=== PATIENT | female | born 1990 | race Caucasian/White ===

== ENCOUNTER 2016-09-15 13:23 | Observation (INO) | payer MEDICAID ==
[2016-09-15] MEDS ORDERED: Sodium Chloride 0.9% 1000 ML 1,000 ML IV STA (13:52)
[2016-09-15] MEDS ORDERED: ROCEPHIN 1 Gm-D5w 50 ml Bag** 1 G/50 ML IVPB IV SCH (14:00)
[2016-09-15 15:25] VITALS: O2SAT 96
[2016-09-15] MEDS ORDERED: Zofran 4 MG/2 ML VIAL IV PRN (15:26)
[2016-09-15] MEDS ORDERED: Sodium Chloride 0.9% 1000 ML 1,000 ML IV SCH (16:15)
[2016-09-15 20:44] VITALS: BP 123/66; PULSE 100
== END 2016-09-15 20:20 | disposition home or self-care (01) ==
LOC: MED SURG 13:23 → OB 13:23
PROVIDERS: ADMIT Family Medicine; ATTEND Family Medicine
DX: Z34.83 Encounter for supervision of other normal pregnancy, third trimester (principal)
CPT/HCPCS: 87070; 87430; 87631; G0378; J0696; J2405

== ENCOUNTER 2016-09-21 21:07 | Observation (INO) | payer MEDICAID ==
[2016-09-21 21:30] VITALS: BP 123/71; PULSE 86
== END 2016-09-21 23:10 | disposition home or self-care (01) ==
LOC: MED SURG 21:07
PROVIDERS: ADMIT Family Medicine; ATTEND Family Medicine
DX: Z34.83 Encounter for supervision of other normal pregnancy, third trimester (principal)
CPT/HCPCS: 59025; 80307; G0378

== ENCOUNTER 2016-09-24 03:06 | Inpatient (IN) | payer MEDICAID ==
[2016-09-24] MEDS ORDERED: Lactated Ringers 1,000 ML IV ONE ×2 (04:18→05:30)
[2016-09-24] MEDS ORDERED: Ephedrine Sulfate 50 MG/ML IV PRN (05:30)
[2016-09-24] MEDS ORDERED: Lactated Ringers 1,000 ML IV SCH (05:30)
[2016-09-24] MEDS ORDERED: PITOCIN 30 UNITS/ LR 500 ML 500 ML IV SCH (05:30)
[2016-09-24] MEDS ORDERED: OB EPIDURAL NAROPIN/SUFENTANIL IN NACL EPIDURAL PRN (05:30)
[2016-09-24 05:42] LABS: Mean Cell Volume 90.5 fl (78-100); Mean Corpuscular Hemoglobin 29.6 pg (26-32); Mean Platelet Volume 11.5 fl (6-9.5); Platelet Count 272 K/mm3 (150-450); Red Blood Count 4.02 M/mm3 (4.1-5.4); Red Cell Distribution Width 14.2 % (11.5-14.0); White Blood Count 18.6 K/mm3 (4.0-10.5)
[2016-09-24] MEDS ORDERED: Ambien 10 MG PO PRN (06:56)
[2016-09-24] MEDS ORDERED: Anucort-HC SUPPOSITORY PR PRN (06:56)
[2016-09-24] MEDS ORDERED: Dulcolax 10 MG SUPP PR PRN (06:56)
[2016-09-24] MEDS ORDERED: Mylicon 80MG PO PRN (06:56)
[2016-09-24] MEDS ORDERED: TUCKS TP PRN (06:56)
[2016-09-24] MEDS ORDERED: Dermoplast Spray TP PRN (06:56)
[2016-09-24] MEDS ORDERED: CORTISONE 1% CREAM TP PRN (06:56)
[2016-09-24] MEDS ORDERED: LANSINOH 40 GM TOP PRN (06:56)
[2016-09-24] MEDS ORDERED: Restoril 15 MG PO PRN (06:56)
[2016-09-24 07:03] LABS: Total Cells Counted 100
[2016-09-24 07:04] LABS: ANISOCYTOSIS 1+; Platelet Estimate NORMAL (NORMAL); Poikilocytosis 1+; Polychromasia 1+
[2016-09-24] MEDS: MOTRIN 400 MG PO PRN ×3 (07:14→21:18)
[2016-09-24] MEDS ORDERED: NON-FORMULARY ITEM (Ondansetron Hcl [Zofran] 4 MG) PO PRN (07:48)
[2016-09-24] MEDS ORDERED: NON-FORMULARY ITEM (Prenatal Vits W-Ca,Fe,Fa(<1mg) [Prenatal] 1 EACH) PO SCH (10:00)
[2016-09-24] MEDS: Nicoderm CQ 21 MG TOP SCH (10:09)
[2016-09-24] MEDS: Colace 100 MG PO SCH ×2 (10:10→21:17)
[2016-09-24] MEDS: TYLENOL EXTRA STRENGTH 500 MG PO PRN (10:10)
[2016-09-24] MEDS: FERREX 150 PO SCH (10:11)
[2016-09-24] MEDS: Augmentin 875-125 Tablet PO SCH ×2 (10:11→21:17)
[2016-09-24] MEDS: THERAGRAN MULTIVITAMIN PO SCH (10:12)
[2016-09-24] MEDS: Tylenol #3 Tablet PO PRN (19:12)
[2016-09-24] MEDS: ZOFRAN ODT 4 MG PO PRN (20:34)
[2016-09-25] MEDS: TYLENOL EXTRA STRENGTH 500 MG PO PRN ×2 (00:21→08:20)
[2016-09-25] MEDS: MOTRIN 400 MG PO PRN ×2 (03:21→12:57)
[2016-09-25 05:46] LABS: BASOPHIL % 0.1 % (0.0-0.4); Eosinophil % 2.9 % (0.00-5.0); Granulocytes % 69.5 % (36.0-66.0); Lymphocytes % 19.4 % (24.0-44.0); Mean Cell Volume 92.1 fl (78-100); Mean Corpuscular Hemoglobin 29.5 pg (26-32); Mean Platelet Volume 11.4 fl (6-9.5); Monocytes % 8.1 % (0.0-12.0); Platelet Count 253 K/mm3 (150-450); Red Blood Count 3.69 M/mm3 (4.1-5.4); Red Cell Distribution Width 14.3 % (11.5-14.0); White Blood Count 13.9 K/mm3 (4.0-10.5)
[2016-09-25] MEDS: ZOFRAN ODT 4 MG PO PRN (08:32)
[2016-09-25] MEDS: THERAGRAN MULTIVITAMIN PO SCH (12:37)
[2016-09-25] MEDS: Colace 100 MG PO SCH ×2 (12:37→20:47)
[2016-09-25] MEDS: FERREX 150 PO SCH (12:37)
[2016-09-25] MEDS: Augmentin 875-125 Tablet PO SCH ×2 (12:37→20:47)
[2016-09-25] MEDS ORDERED: ZOFRAN ODT 4 MG PO PRN (20:04)
[2016-09-25] MEDS: Tylenol #3 Tablet PO PRN (20:47)
--- NOTE | 2016-09-26 08:04 | PCM.DS ---
Discharge Summary Date of Admission: 09/24/16 03:25 Admitting Physician: SERGEY RAMIREZ Consults: Consults on Case 09/24/16 05:30 Notify Anesthesia Provider PRN Primary Care Provider: SERGEY RAMIREZ Allergies Allergies latex Adverse Reaction (Verified 09/15/16 14:31) Hospital Summary - Hospital Course Hospital Course: Pt admitted in labor at 36+ weeks, had baby via after receiving a spinal. She had no vaginal lacerations. . She has recovered well, up without dizziness, gokul po. She asked for a nicotine patch here, smoked 1 PPD. Would like to d/c home on the patch. - Vitals & Intake/Output Vital Signs: Vital Signs Temperature 97.9 F 09/25/16 20:00 Pulse Rate 83 09/25/16 20:00 Respiratory Rate 16 09/26/16 02:00 Blood Pressure 124/70 09/25/16 20:00 O2 Sat by Pulse Oximetry Intake & Output: Intake & Output 09/23/16 09/24/16 09/25/16 09/26/16 11:59 11:59 11:59 11:59 Weight 84.368 kg - Lab Result Diagrams: 09/25/16 05:08 - Procedures and Test Procedures and Tests throughout Hospitalization: Therapy Orders & Screens 09/24/16 05:13 Smoking Cessation Education ONCE Comment: Diagnosis: OB CHECK Smoking Status: Current every day smoker How long have you smoked: 10 Have you smoked in the past 12 months: Yes Approximately how many cigarettes per day: 10 Do you dip or chew tobacco: No Discharge Exam General Appearance: no apparent distress Neurologic Exam: alert, oriented x 3, cooperative Skin Exam: normal color, warm, dry Respiratory Exam: normal breath sounds, lungs clear, No crackles/rales, No rhonchi, No wheezing Cardiovascular Exam: regular rate/rhythm, normal heart sounds, No murmur Extremity Exam: No pedal edema, No swelling Final Diagnosis/Problem List - Final Discharge Diagnosis/Problem (1) Vaginal delivery Current Visit: Yes Status: Acute Assessment & Plan: Doing great. Home today. (2) Anemia Current Visit: Yes Status: Acute Assessment & Plan: mild. home on iron once daily for a month. (3) Tobacco use disorder Current Visit: Yes Status: Chronic Assessment & Plan: Home on nicotine patch per pt request. - Discharge Disposition: Home, Self-Care Condition: Stable Prescriptions: [place] Polysaccharides Complex [Ferrex 150] 150 mg PO DAILY #30 capsule Nicotine 21 mg [Nicoderm CQ 21 MG] 21 mg TOP Q24H #30 patch Codeine Phosphate/APAP #3 [Tylenol #3 Tablet] 1 - 2 tab PO Q4H PRN PRN # 20 tablet PRN Reason: Severe Pain Continue Vits W-Ca,Fe,FA(<1Mg) [] 1 each PO DAILY Ondansetron HCl [Zofran] 4 mg PO DAILY PRN PRN PRN Reason: Nausea Amoxicillin/Potassium Clav [Augmentin 875-125 Tablet] 875 mg PO BID Follow up with: SERGEY RAMIREZ [Primary Care Provider] - 1 Week Forms: Work/School Release Form
[2016-09-26] MEDS: Tylenol #3 Tablet PO PRN (09:09)
[2016-09-26] MEDS: FERREX 150 PO SCH (09:09)
[2016-09-26] MEDS: Colace 100 MG PO SCH (09:09)
[2016-09-26] MEDS: THERAGRAN MULTIVITAMIN PO SCH (09:10)
[2016-09-26] MEDS: Augmentin 875-125 Tablet PO SCH (09:10)
[2016-09-26] MEDS: Nicoderm CQ 21 MG TOP SCH (09:11)
[2016-09-26 09:23] VITALS: BP 109/57; PULSE 76
== END 2016-09-26 12:40 | disposition home or self-care (01) | DRG 775 ==
LOC: OB 03:06 → OBSVTOIN 03:25 → OB 03:25
PROVIDERS: ADMIT Family Medicine; ATTEND Family Medicine
PROC: 10E0XZZ Delivery of Products of Conception, External Approach (ICD-10-PCS; principal; 2016-09-24)
DX: O80 Encounter for full-term uncomplicated delivery (principal); Z3A.36 36 weeks gestation of pregnancy; Z37.0 Single live birth; D64.9 Anemia, unspecified; Z72.0 Tobacco use
CPT/HCPCS: 36415; 59025; 80307; 85025; 94799; G0378; J2590; J2795; Q0162; A9270-GY

== ENCOUNTER 2017-12-11 15:33 | Observation (INO) | payer MEDICAID ==
[2017-12-11] MEDS ORDERED: Lactated Ringers 1,000 ML IV ONE ×2 (17:26→22:00)
[2017-12-11] MEDS: Lactated Ringers 1,000 ML IV SCH ×2 (19:15→22:01)
[2017-12-11] MEDS ORDERED: Celestone Soluspan 6MG/ML IM ONE (21:36)
--- NOTE | 2017-12-11 21:41 | PCM.SSS ---
History of Present Illness - Chief Complaint Chief Complaint: OB Check History of Present Illness: is a 27 year old female at 32 weeks EGA who arrived c/o decreased movement. She felt like her baby flipped last night and has not felt any movement since then. history is complicated by anti-M antibody and has seen Dr Williamson in [place]. She has had some decelerations since arrival to labor and delivery. She has not had any contractions, no bleeding or leakage of fluid. - Review of Systems Constitutional: No Fever, No Chills Respiratory: No Cough, No Short Of Breath Cardiac: No Chest Pain, No Edema, No Syncope Abdominal/Gastrointestinal: Other (decreased movement as per hpi), No Abdominal Pain, No Nausea, No Vomiting, No Diarrhea Genitourinary Symptoms: No Dysuria Medications & Allergies Home Medications: Home Medication List Vits W-Ca,Fe,FA(<1Mg) [] 1 each PO DAILY 09/21/16 [History Confirmed 12/11/17] Allergies/Adverse Reactions: Allergies Allergy/AdvReac Type Severity Reaction Status Date / Time latex AdvReac Verified 12/11/17 16:53 - Past Medical History Past Medical History: Yes Neurological History: No Pertinent History ENT History: No Pertinent History Cardiac History: No Pertinent History Respiratory History: Pneumonia Endocrine Medical History: No Pertinent History Musculoskelatal History: No Pertinent History GI Medical History: No Pertinent History History: No Pertinent History Pyscho-Social History: No Pertinent History Reproductive Disorders: No Pertinent History - Female History Expected Date of Delivery: 02/09/18 - Past Surgical History Past Surgical History: No Neuro Surgical History: No Pertinent History Cardiac History: No Pertinent History Respiratory Surgery: No Pertinent History GI Surgical History: No Pertinent History Genitourinary Surgical Hx: No Pertinent History Musculskeletal Surgical Hx: No Pertinent History Female Surgical History: No Pertinent History - Social History Smoking Status: Current every day smoker How long have you smoked: 10 Exposure to second hand smoke: Yes Alcohol: None Drug Use: none - Physical Exam Vital Signs: Vital Signs - 24 hr Temp Pulse Resp BP BP 12/11/17 16:02 98.2 F 90 18 128/62 12/11/17 16:00 98.2 F 909 H 18 128/62 General Appearance: no apparent distress, alert Eye Exam: PERRL/EOMI, eyes nml inspection Ears, Nose, Throat Exam: normal ENT inspection, TMs normal, pharynx normal, moist mucous membranes Respiratory Exam: normal breath sounds, lungs clear, No respiratory distress Cardiovascular Exam: regular rate/rhythm, normal heart sounds, normal peripheral pulses Gastrointestinal/Abdomen Exam: soft, other (gravid), No tenderness, No distention Results - Radiology Impressions Radiology Exams & Impressions: Radiology Procedures Category Date Time Status OB >14 WKS 1st GESTATION [US] Urgent Exams 12/11/17 16:31 Taken Assessment/Plan (1) Non-reassuring heart rate or rhythm affecting management of fetus Current Visit: Yes Status: Acute Assessment & Plan: I spoke with Dr Ivory Epstein at [facility] who agrees to accept patient in transfer, patient has not had any declerations for the last 1+ hour, no significant risk of delivery in transit. needs to be evaluated by MFM and will give celestone 12mg IM per her request. Code(s): OQT1935 - (2) 32 weeks gestation of Current Visit: Yes Status: Acute Code(s): Z3A.32 - 32 WEEKS GESTATION OF (3) Anti-M isoimmunization affecting , antepartum Current Visit: Yes Status: Acute Assessment & Plan: no titers or consult available in medical records but antibody ID present in outpatient OB chart. Code(s): O36.1990 - MATERNAL CARE FOR OTH ISOIMMUNIZATION, [facility], [facility] Hospital Summary - Vitals & Intake/Output Vital Signs: Vital Signs Temperature 98.2 F 12/11/17 16:02 Pulse Rate 90 12/11/17 16:02 Respiratory Rate 12/11/17 16:02 Blood Pressure 128/62 12/11/17 16:02 O2 Sat by Pulse Oximetry Intake & Output: Intake & Output 12/09/17 12/10/17 12/11/17 12/12/17 11:59 11:59 11:59 11:59 Weight 75 kg - Radiology Exams Ordered Rad Exams-Entire Visit: Radiology Procedures Category Date Time Status OB >14 WKS 1st GESTATION [US] Urgent Exams 12/11/17 16:31 Taken - Discharge Disposition: XFER OTHER Condition: Stable Prescriptions: No Action Vits W-Ca,Fe,FA(<1Mg) [] 1 each PO DAILY
[2017-12-11] MEDS ORDERED: Celestone Soluspan 6MG/ML ONE (21:45)
--- NOTE | 2017-12-11 23:08 | XRAY ---
Exam: OB ultrasound greater than 14 weeks from 12/11/2017 Comparison: OB ultrasound greater than 14 weeks from 09/09/2017 and 08/26/2017. Indication: well-being. Findings: A single live intrauterine fetus is seen in the oblique lie and cephalic presentation. body movement and cardiac activity were identified. The heart rate measured 141 bpm. The placenta is anterior. There is no evidence of placenta previa. The amniotic fluid index measures 13.5 cm which is within normal limits for this stage of . Measurements of the biparietal diameter, head circumference, abdominal circumference, and femur length suggest an average composite gestational age of 29 weeks 3 days plus or -2 weeks 0 days with an estimated due date of 02/23/2018. This is 13 days behind that anticipated by the first OB ultrasound of 08/26/2017. Estimated due date by dates is 02/09/2018, whereas today's exam suggests a due date of 02/23/2018. This would suggest that the fetus may be somewhat small for gestational age. Estimated weight is 1417 g plus or minus 212 g (3 lbs. 2 oz.+ or -7 ounces). The estimated weight is in the 3.6 percentile. size ratios are all within normal limits except for a slightly elevated femur length head circumference ratio of 21.78 (normal 19.43-21.06). In addition, color flow images reveal a portion of the umbilical cord completely surrounding the neck consistent with a nuchal cord. This is seen with color flow imaging. Up to half of nuchal cords will resolve before delivery. However, follow-up is indicated in this regard. Survey of the ventricles, lips/nose, four-chamber heart, fluid-filled stomach, diaphragm, kidneys, urinary bladder, and three-vessel umbilical cord appear unremarkable. The umbilical cord insertion site was unable to be seen. The spine was not evaluated on the current study. Both the umbilical cord insertion site and spine appeared unremarkable on the OB ultrasound from 09/09/2017. Impression: 1. Single live intrauterine fetus in the oblique lie and cephalic presentation with a heart rate of 141 bpm. 2. A portion of the umbilical cord appears to completely surround the neck suggesting a nuchal cord. Follow-up is recommended. 3. size measurements suggest a gestational age of 29 weeks 3 days which is 13 days behind that anticipated by the prior ultrasound exam of 09/09/2017. This is still within the normal range of variability of plus or minus 2 weeks at this stage of , but the fetus may be somewhat small for gestational age. Furthermore, estimated weight of 3 [address] fetus in the 3.6 percentile. Follow-up is warranted. 4. The placenta appears anterior. No placenta previa is seen. 5. Normal amniotic fluid index of 13.5 cm.
[2017-12-12 04:38] VITALS: PULSE 78
[2017-12-12 05:30] VITALS: BP 126/80; O2SAT 97
== END 2017-12-11 22:45 ==
LOC: OB 15:33
PROVIDERS: ADMIT Family Medicine; ATTEND Family Medicine
DX: Z34.83 Encounter for supervision of other normal pregnancy, third trimester (principal)
CPT/HCPCS: 76805; G0378; J0702

== ENCOUNTER 2018-11-09 19:15 | Observation (INO) | payer OTHER ==
[2018-11-09 20:31] LABS: Appearance CLOUDY (CLEAR); Bilirubin NEGATIVE (NEGATIVE); Blood NEGATIVE Ery/ul (0-5); Epithelial Cells MANY /HPF (FEW); Glucose NEGATIVE (NEGATIVE); Hyaline Casts 0-2 /LPF (0-2); Ketones NEGATIVE (NEGATIVE); Leukocyte Esterase NEGATIVE (NEGATIVE); Mucus SLIGHT /HPF (NEGATIVE); Nitrite NEGATIVE (NEGATIVE); Protein,Urine Dip 30 (Negative); Urobilinogen 4 mg/dL (0-1)
[2018-11-09] MEDS ORDERED: Lactated Ringers 1,000 ML IV ONE (20:45)
[2018-11-09] MEDS ORDERED: ROCEPHIN 1 Gm-D5w 50 ml Bag** 1 G/50 ML IVPB IV ONE (21:04)
[2018-11-09 21:25] LABS: Amphetamine,Urine NEGATIVE (NEGATIVE)
[2018-11-09 21:29] LABS: Barbiturate,Urine NEGATIVE (NEGATIVE); Benzodiazepine,Urine NEGATIVE (NEGATIVE); Cocaine,Urine NEGATIVE (NEGATIVE); Methadone,Urine NEGATIVE (NEGATIVE); Opiate,Urine NEGATIVE (NEGATIVE); PCP,Urine NEGATIVE (NEGATIVE); THC,Urine POSITIVE (NEGATIVE)
[2018-11-09] MEDS ORDERED: Lactated Ringers 1,000 ML IV SCH ×2 (21:30)
[2018-11-09] MEDS: Lactated Ringers 1,000 ML IV SCH (21:51)
[2018-11-09 21:54] LABS: BASOPHIL % 0.1 % (0.0-0.4); Basophil (Absolute #) 0.01 (0-0.4); Eosinophil % 1.3 % (0.00-5.0); Eosinophil (Absolute #) 0.22 (0-0.5); Granulocyte Absolute (ANC) 13.35 (1.4-6.9); Granulocytes % 79.6 % (36.0-66.0); Hematocrit 34.4 % (35-47); Hemoglobin 11.6 gm/dl (12.0-16.0); Lymphocyte (Absolute #) 1.65 (1.0-4.6); Lymphocytes % 9.9 % (24.0-44.0); Mean Cell Volume 90.8 fl (78-100); Mean Corpuscular Hemoglobin 30.6 pg (26-32); Mean Corpuscular Hgb Concent. 33.7 g/dl (32-36); Mean Platelet Volume 11.8 fl (6-9.5); Monocyte (Absolute #) 1.52 (0.0-1.3); Monocytes % 9.1 % (0.0-12.0); Platelet Count 247 K/mm3 (150-450); Red Blood Count 3.79 M/mm3 (4.1-5.4); Red Cell Distribution Width 13.4 % (11.5-14.0); White Blood Count 16.8 K/mm3 (4.0-10.5)
[2018-11-09 22:10] LABS: ALBUMIN 3.4 g/dL (3.5-5.0); ALKALINE PHOSPHATASE 150 U/L (38-126); ANION GAP 12.3 MEQ/L (5-15); BLOOD UREA NITROGEN 4 mg/dL (7-17); CHLORIDE 106 mmol/L (98-107); Calcium 8.8 mg/dL (8.4-10.2); Carbon Dioxide 22 mmol/L (22-30); Creatinine 1 0.34 mg/dL (0.52-1.04); Glucose 81 mg/dL (74-106); Potassium 3.6 mmol/L (3.5-5.1); SGOT/AST 15 U/L (14-36); SGPT/ALT 12 U/L (0-35); SODIUM 137 mmol/L (137-145); Total Protein 6.9 g/dL (6.3-8.2)
[2018-11-10 01:20] LABS: Slide Review 1 YES
[2018-11-10] MEDS: Lactated Ringers 1,000 ML IV SCH ×2 (06:05→15:37)
[2018-11-10] MEDS ORDERED: PROVENTIL 2.5 MG/3 ML NEB IH ONE ×3 (10:46→19:14)
--- NOTE | 2018-11-10 10:56 | XRAY ---
Indication: Cough. Comparison: None PA/lateral chest demonstrates normal heart and lungs. Bony thorax intact with minimal scoliosis and mild pectus excavatum deformity. Impression: Nonacute chest with chronic features.
[2018-11-10] MEDS: PROVENTIL 2.5 MG/3 ML NEB IH SCH ×3 (11:23→19:15)
--- NOTE | 2018-11-10 12:04 | XRAY ---
Indication: well-being. Minimal care. 2-dimensional OB ultrasound performed. Comparison: None for this . There is a single viable intrauterine currently in cephalic presentation. Normal four-chamber heart with heart rate 135 BPM. Normal three-vessel cord and cord insertion. Visualized head, spine, stomach, and bladder appear unremarkable. Anterior placenta without abruption/previa. Cervical length measures 4.1 cm. BPD measures 8.12 cm corresponding to 32 weeks 4 days. HC measures 29.54 cm corresponding to 32 weeks 5 days. AC measures 29.64 cm corresponding to 33 weeks 4 days. FL measures 6.20 cm corresponding to 32 weeks 1 day. MARGA is 17.8 cm. Impression: Single viable intrauterine with mean gestational age 32 weeks 5 days. Expected date confinement is December 31, 2018.
[2018-11-10 15:19] LABS: Antibody Screen POSITIVE (NEGATIVE)
[2018-11-10] MEDS ORDERED: ROCEPHIN 1 Gm-D5w 50 ml Bag** 1 G/50 ML IVPB IV ONE (18:19)
[2018-11-10] MEDS ORDERED: NORCO 5/325 MG PO ONE (18:30)
[2018-11-10 20:54] VITALS: BP 118/76; PULSE 94; O2SAT 96
[2018-11-10] MEDS ORDERED: ROCEPHIN 1 Gm-D5w 50 ml Bag** 1 G/50 ML IVPB IV SCH (22:00)
[2018-11-11 14:16] LABS: RPR Screen Non Reactive (Non Reactive)
[2018-11-11 14:52] LABS: AB ID Interp Anti-M
[2018-11-11 14:53] LABS: Immune Status: Immune
[2018-11-11 15:02] LABS: Blood Bank Reference Report See Result Note:
== END 2018-11-10 21:00 | disposition home or self-care (01) ==
LOC: MED SURG 19:15 → OB 19:55
PROVIDERS: ADMIT Family Medicine; ATTEND Family Medicine
DX: Z34.83 Encounter for supervision of other normal pregnancy, third trimester (principal)
CPT/HCPCS: 0064U; 0065U; 36415; 71046; 76805; 80053; 80307; 81001; 85025; 86593; 86701; 86702; 86762; 86850; 86870; 86900; 86901; 87340; 87389; 94150; 94640; 94760; 86592; J0696; J7609; A9270-GY

== ENCOUNTER 2018-11-22 19:47 | Observation (INO) | payer OTHER ==
[2018-11-22] MEDS ORDERED: Zofran 4 MG/2 ML VIAL IV ONE (20:50)
[2018-11-22] MEDS ORDERED: Lactated Ringers 1,000 ML IV SCH (21:00)
[2018-11-22 21:23] LABS: Hematocrit 39.9 % (35-47); Hemoglobin 13.3 gm/dl (12.0-16.0); Mean Cell Volume 90.1 fl (78-100); Mean Corpuscular Hgb Concent. 33.3 g/dl (32-36); Mean Platelet Volume 11.3 fl (6-9.5); Platelet Count 308 K/mm3 (150-450); Red Blood Count 4.43 M/mm3 (4.1-5.4); Red Cell Distribution Width 13.6 % (11.5-14.0)
[2018-11-22 21:34] LABS: ALBUMIN 3.7 g/dL (3.5-5.0); ALKALINE PHOSPHATASE 188 U/L (38-126); ANION GAP 11.8 MEQ/L (5-15); BLOOD UREA NITROGEN 6 mg/dL (7-17); CHLORIDE 105 mmol/L (98-107); Calcium 9.1 mg/dL (8.4-10.2); Carbon Dioxide 25 mmol/L (22-30); Creatinine 1 0.39 mg/dL (0.52-1.04); Glucose 112 mg/dL (74-106); Potassium 4.2 mmol/L (3.5-5.1); SGOT/AST 16 U/L (14-36); SGPT/ALT 14 U/L (0-35); SODIUM 138 mmol/L (137-145); Total Protein 7.2 g/dL (6.3-8.2)
[2018-11-22 21:51] LABS: White Blood Count 30.5 K/mm3 (4.0-10.5)
[2018-11-22] MEDS ORDERED: ROCEPHIN 1 Gm-D5w 50 ml Bag** 1 G/50 ML IVPB IV SCH (22:33)
[2018-11-22] MEDS ORDERED: BRETHINE 1 MG/ML SQ ONE (22:33)
[2018-11-22] MEDS: Lactated Ringers 1,000 ML IV SCH (22:47)
[2018-11-22 23:19] LABS: Appearance SLIGHTLY CLOUDY (CLEAR); Bilirubin NEGATIVE (NEGATIVE); Blood NEGATIVE Ery/ul (0-5); Epithelial Cells RARE /HPF (FEW); Glucose NEGATIVE (NEGATIVE); Ketones TRACE (NEGATIVE); Leukocyte Esterase TRACE (NEGATIVE); Mucus SLIGHT /HPF (NEGATIVE); Nitrite NEGATIVE (NEGATIVE); Protein,Urine Dip NEGATIVE (Negative); Specific Gravity 1.017 (1.005-1.025); Urobilinogen NEGATIVE mg/dL (0-1)
[2018-11-22 23:31] LABS: Amphetamine,Urine NEGATIVE (NEGATIVE); Barbiturate,Urine NEGATIVE (NEGATIVE); Benzodiazepine,Urine NEGATIVE (NEGATIVE); Cocaine,Urine NEGATIVE (NEGATIVE); Methadone,Urine NEGATIVE (NEGATIVE); Opiate,Urine NEGATIVE (NEGATIVE); PCP,Urine NEGATIVE (NEGATIVE); THC,Urine NEGATIVE (NEGATIVE)
[2018-11-22 23:49] LABS: ANISOCYTOSIS 2+; BAND 12 % (0.0-2.0); Lymphocytes 5 % (24-44); Monocyte 7 % (0.0-12.0); Neutrophils 76 % (36.0-66.0); Platelet Estimate NORMAL (NORMAL); Poikilocytosis 1+; Total Cells Counted 100
[2018-11-23] MEDS ORDERED: BRETHINE 1 MG/ML SQ ONE (00:11)
[2018-11-23] MEDS: Lactated Ringers 1,000 ML IV SCH ×2 (01:00→07:27)
[2018-11-23 05:56] VITALS: O2SAT 96
[2018-11-23] MEDS ORDERED: Lactated Ringers 1,000 ML IV ONE (07:23)
--- NOTE | 2018-11-23 09:20 | PCM.HP ---
History of Present Illness - Chief Complaint Chief Complaint: vomiting History of Present Illness: is a 28 year old female who presented to the labor and delivery room with vomiting and back pain, she was found to have contractions and ketonuria consistent with dehydration, contractions resolved with terbutaline x 2 and IV hydration. she was seen on 11/[address] Li and given rx for augmentin, took 1 dose at home and made her sick so she stopped. She had some recurrence of cough and congestion so took 1 dose yesterday and developed profuse vomiting since then. She has not been seen in the office, was apparently seen x [address] Menard. ob ultrasound on 11/10/18 at [facility] showed edc 12/31/18, she claims she was told her due date is 01/17/19, which makes her 32 1/7 wks EGA by her reported due date and 34 4/7 wks EGA based on her ultrasound. - Review of Systems Constitutional: No Fever, No Chills Respiratory: Cough Cardiac: No Chest Pain, No Edema, No Syncope Abdominal/Gastrointestinal: No Abdominal Pain, No Nausea, No Vomiting, No Diarrhea Genitourinary Symptoms: No Dysuria Skin: No Rash All Other Systems: Reviewed and Negative Medications & Allergies Home Medications: Home Medication List Vits W-Ca,Fe,FA(<1Mg) [] 1 each PO DAILY 09/21/16 [History Confirmed 11/23/18] Acetaminophen 500 mg [Tylenol Extra Strength 500 mg] 1 - 2 tab PO BID PRN 11/09/18 [History Confirmed 11/23/18] Amox Tr/Potass Clav. 875 mg [Augmentin 875-125 Tablet] 1 tab PO BID 8 Days #16 tablet 11/10/18 [Rx Confirmed 11/23/18] Allergies/Adverse Reactions: Allergies Allergy/AdvReac Type Severity Reaction Status Date / Time latex AdvReac Verified 12/11/17 16:53 - Past Medical History Past Medical History: Yes Neurological History: No Pertinent History ENT History: No Pertinent History Cardiac History: No Pertinent History Respiratory History: Pneumonia Endocrine Medical History: No Pertinent History Musculoskelatal History: No Pertinent History GI Medical History: No Pertinent History History: No Pertinent History Pyscho-Social History: No Pertinent History Reproductive Disorders: No Pertinent History - Past Surgical History Past Surgical History: No Neuro Surgical History: No Pertinent History Cardiac History: No Pertinent History Respiratory Surgery: No Pertinent History GI Surgical History: No Pertinent History Genitourinary Surgical Hx: No Pertinent History Musculskeletal Surgical Hx: No Pertinent History Female Surgical History: Section - Social History Smoking Status: Current every day smoker How long have you smoked: 14yrs Exposure to second hand smoke: Yes Alcohol: None Drug Use: none - Physical Exam Vital Signs: Vital Signs - 24 hr Temp Pulse Resp BP BP Pulse Ox 11/23/18 04:00 97.9 F 91 H 20 123/70 96 11/23/18 00:00 98.1 F 120 H 20 122/61 11/22/18 21:32 98.1 F 85 20 115/80 General Appearance: no apparent distress Neurologic Exam: alert, oriented x 3 Respiratory Exam: normal breath sounds, lungs clear, wheezing (occasional wheeze in bases) Cardiovascular Exam: regular rate/rhythm, normal heart sounds, normal peripheral pulses Gastrointestinal/Abdomen Exam: soft (gravid), normal bowel sounds, No tenderness , No mass Extremity Exam: normal inspection, normal range of motion, pelvis stable Skin Exam: normal color, warm, dry, No rash Results - Labs Lab/Micro Results: Lab Results-Last 24 Hours 11/22/18 11/22/18 11/22/18 Range/Units 21:27 21:27 23:15 WBC 30.5 H* (4.0-10.5) K/mm3 RBC 4.43 (4.1-5.4) M/mm3 Hgb 13.3 (12.0-16.0) gm/dl Hct 39.9 (35-47) % MCV 90.1 (78-100) fl MCH 30.0 (26-32) pg MCHC 33.3 (32-36) g/dl RDW 13.6 (11.5-14.0) % Plt Count 308 (150-450) K/mm3 MPV 11.3 H (6-9.5) fl Segmented Neutrophils 76 H (36.0-66.0) % Band Neutrophils 12 H (0.0-2.0) % Lymphocytes (Manual) 5 L (24-44) % Monocytes (Manual) 7 (0.0-12.0) % Platelet Estimate NORMAL (NORMAL) RBC Morphology ABNORMAL Poikilocytosis 1+ Anisocytosis 2+ Smear Path Review Pending Sodium 138 (137-145) mmol/L Potassium 4.2 (3.5-5.1) mmol/L Chloride 105 (98-107) mmol/L Carbon Dioxide 25 (22-30) mmol/L Anion Gap 11.8 (5-15) MEQ/L BUN 6 L (7-17) mg/dL Creatinine 0.39 L (0.52-1.04) mg/dL Estimated GFR > 60.0 ML/MIN Glucose 112 H (74-106) mg/dL Calcium 9.1 (8.4-10.2) mg/dL Total Bilirubin 0.30 (0.2-1.3) mg/dL AST 16 (14-36) U/L ALT 14 (0-35) U/L Alkaline Phosphatase 188 H (38-126) U/L Serum Total Protein 7.2 (6.3-8.2) g/dL Albumin 3.7 (3.5-5.0) g/dL Urine Color YELLOW (YELLOW) Urine Appearance SLIGHTLY CLOUDY (CLEAR) Urine pH 7.0 (5-6) Ur Specific [place] 1.017 (1.005-1.025) Urine Protein NEGATIVE (Negative) Urine Ketones TRACE (NEGATIVE) Urine Blood NEGATIVE (0-5) Jose/ul Urine Nitrite NEGATIVE (NEGATIVE) Urine Bilirubin NEGATIVE (NEGATIVE) Urine Urobilinogen NEGATIVE (0-1) mg/dL Ur Leukocyte Esterase TRACE (NEGATIVE) Urine WBC (Auto) 3-5 (0-5) /HPF Urine RBC (Auto) NONE (0-2) /HPF U Epithel Cells (Auto) RARE (FEW) /HPF Urine Bacteria (Auto) NONE (NEGATIVE) /HPF Urine Mucus (Auto) SLIGHT (NEGATIVE) /HPF Urine Culture Reflexed NO (NO) Urine Glucose NEGATIVE (NEGATIVE) mg/dL Urine Opiates Level (NEGATIVE) Ur Methadone (NEGATIVE) Urine Barbiturates (NEGATIVE) Ur Phencyclidine (PCP) (NEGATIVE) Urine Amphetamine (NEGATIVE) U Benzodiazepine Level (NEGATIVE) Urine Cocaine (NEGATIVE) Urine Marijuana (THC) (NEGATIVE) 11/22/18 Range/Units 23:15 WBC (4.0-10.5) K/mm3 RBC (4.1-5.4) M/mm3 Hgb (12.0-16.0) gm/dl Hct (35-47) % MCV (78-100) fl MCH (26-32) pg MCHC (32-36) g/dl RDW (11.5-14.0) % Plt Count (150-450) K/mm3 MPV (6-9.5) fl Segmented Neutrophils (36.0-66.0) % Band Neutrophils (0.0-2.0) % Lymphocytes (Manual) (24-44) % Monocytes (Manual) (0.0-12.0) % Platelet Estimate (NORMAL) RBC Morphology Poikilocytosis Anisocytosis Smear Path Review Sodium (137-145) mmol/L Potassium (3.5-5.1) mmol/L Chloride (98-107) mmol/L Carbon Dioxide (22-30) mmol/L Anion Gap (5-15) MEQ/L BUN (7-17) mg/dL Creatinine (0.52-1.04) mg/dL Estimated GFR ML/MIN Glucose (74-106) mg/dL Calcium (8.4-10.2) mg/dL Total Bilirubin (0.2-1.3) mg/dL AST (14-36) U/L ALT (0-35) U/L Alkaline Phosphatase (38-126) U/L Serum Total Protein (6.3-8.2) g/dL Albumin (3.5-5.0) g/dL Urine Color (YELLOW) Urine Appearance (CLEAR) Urine pH (5-6) Ur Specific [place] (1.005-1.025) Urine Protein (Negative) Urine Ketones (NEGATIVE) Urine Blood (0-5) Jose/ul Urine Nitrite (NEGATIVE) Urine Bilirubin (NEGATIVE) Urine Urobilinogen (0-1) mg/dL Ur Leukocyte Esterase (NEGATIVE) Urine WBC (Auto) (0-5) /HPF Urine RBC (Auto) (0-2) /HPF U Epithel Cells (Auto) (FEW) /HPF Urine Bacteria (Auto) (NEGATIVE) /HPF Urine Mucus (Auto) (NEGATIVE) /HPF Urine Culture Reflexed (NO) Urine Glucose (NEGATIVE) mg/dL Urine Opiates Level NEGATIVE (NEGATIVE) Ur Methadone NEGATIVE (NEGATIVE) Urine Barbiturates NEGATIVE (NEGATIVE) Ur Phencyclidine (PCP) NEGATIVE (NEGATIVE) Urine Amphetamine NEGATIVE (NEGATIVE) U Benzodiazepine Level NEGATIVE (NEGATIVE) Urine Cocaine NEGATIVE (NEGATIVE) Urine Marijuana (THC) NEGATIVE (NEGATIVE) Assessment/Plan (1) Nausea and vomiting Current Visit: Yes Status: Acute Assessment & Plan: resolved with fluids and treatment Code(s): R11.2 - NAUSEA WITH VOMITING, UNSPECIFIED (2) contractions Current Visit: Yes Status: Acute Assessment & Plan: resolved with terb x 2 Code(s): O47.9 - FALSE LABOR, UNSPECIFIED (3) Leukocytosis Current Visit: Yes Status: Acute Assessment & Plan: likely secondary to vomiting, will repeat cbc this am Code(s): D72.829 - ELEVATED WHITE BLOOD CELL COUNT, UNSPECIFIED
[2018-11-23 09:41] LABS: BASOPHIL % 0.1 % (0.0-0.4); Basophil (Absolute #) 0.02 (0-0.4); Eosinophil % 0.7 % (0.00-5.0); Eosinophil (Absolute #) 0.13 (0-0.5); Granulocyte Absolute (ANC) 14.35 (1.4-6.9); Granulocytes % 82.7 % (36.0-66.0); Hematocrit 32.9 % (35-47); Hemoglobin 10.8 gm/dl (12.0-16.0); Lymphocyte (Absolute #) 1.94 (1.0-4.6); Lymphocytes % 11.2 % (24.0-44.0); Mean Cell Volume 91.4 fl (78-100); Mean Corpuscular Hgb Concent. 32.8 g/dl (32-36); Mean Platelet Volume 11.4 fl (6-9.5); Monocytes % 5.3 % (0.0-12.0); Platelet Count 273 K/mm3 (150-450); Red Cell Distribution Width 13.4 % (11.5-14.0); White Blood Count 17.4 K/mm3 (4.0-10.5)
[2018-11-23 10:00] VITALS: BP 113/70; PULSE 88
[2018-11-23] MEDS ORDERED: ROCEPHIN 1 Gm-D5w 50 ml Bag** 1 G/50 ML IVPB IV SCH (22:00)
== END 2018-11-23 11:15 | disposition home or self-care (01) ==
LOC: OB 19:47
PROVIDERS: ADMIT Family Medicine; ATTEND Family Medicine
DX: O21.9 Vomiting of pregnancy, unspecified (principal); O60.03 Preterm labor without delivery, third trimester; Z3A.34 34 weeks gestation of pregnancy; D72.829 Elevated white blood cell count, unspecified
CPT/HCPCS: 36415; 80053; 80307; 81001; 85025; 90384; G0378; J0696; J2405

== ENCOUNTER 2018-12-17 07:00 | Inpatient (IN) | payer MEDICAID | END 2018-12-18 13:50 | disposition home or self-care (01) | LOC: OB 07:00 ==

== ENCOUNTER 2019-01-23 14:14 | Emergency (ER) | payer MEDICAID ==
--- NOTE | 2019-01-23 14:21 | ERPHSYRPT ---
- History of Present Illness Time Seen by Provider: 01/23/19 14:21 Source: patient, family Exam Limitations: no limitations Physician History: 28 y/o white female presents with right breast pain, redness, and drainage. pt states she was bite by something 4 to 5 days ago. sx worsening. pt has gi upset with augmentin but no true allergy. Timing/Duration: day(s) ( 4 to 5 ) Quality: burning, painful Severity: moderate Location: other (right breast) Possible Causes: insect bite Associated Symptoms: blisters, change in skin texture Allergies/Adverse Reactions: latex Adverse Reaction (Verified 01/23/19 15:26) - Review of Systems Constitutional: No Symptoms Eyes: No Symptoms Ears, Nose, & Throat: No Symptoms Respiratory: No Symptoms Cardiac: No Symptoms Abdominal/Gastrointestinal: No Symptoms Genitourinary Symptoms: No Symptoms Musculoskeletal: No Symptoms Skin: Other (abscess eschar redness right breast) Neurological: No Symptoms Psychological: No Symptoms Endocrine: No Symptoms Hematologic/Lymphatic: No Symptoms Immunological/Allergic: No Symptoms All Other Systems: Reviewed and Negative - Past Medical History Pertinent Past Medical History: Yes Neurological History: No Pertinent History ENT History: No Pertinent History Cardiac History: No Pertinent History Respiratory History: Asthma, Pneumonia Endocrine Medical History: No Pertinent History Musculoskeletal History: No Pertinent History GI Medical History: No Pertinent History History: No Pertinent History Psycho-Social History: No Pertinent History Female Reproductive Disorders: No Pertinent History Other Medical History: IN 2018 - Past Surgical History Past Surgical History: No Neuro Surgical History: No Pertinent History Cardiac: No Pertinent History Respiratory: No Pertinent History Gastrointestinal: No Pertinent History Genitourinary: No Pertinent History Musculoskeletal: No Pertinent History Female Surgical History: Section - Social History Smoking Status: Current every day smoker How long have you smoked: 14yrs Exposure to second hand smoke: Yes Drug Use: marijuana - Nursing Vital Signs Nursing Vital Signs: Initial Vital Signs Temperature 98.0 F 01/23/19 14:19 Pulse Rate 86 01/23/19 14:19 Respiratory Rate 18 01/23/19 14:19 Blood Pressure 108/75 01/23/19 14:19 Pain Scale Pain Intensity 9 - Physical Exam General Appearance: mild distress Eye Exam: PERRL/EOMI, eyes nml inspection Ears, Nose, Throat Exam: normal ENT inspection, moist mucous membranes Neck Exam: normal inspection, non-tender, supple, full range of motion Respiratory Exam: normal breath sounds, lungs clear, airway intact, No chest tenderness, No respiratory distress Gastrointestinal/Abdomen Exam: No tenderness Pelvic Exam: not done Rectal Exam: not done Back Exam: normal inspection, normal range of motion, No CVA tenderness, No vertebral tenderness Extremity Exam: normal inspection, normal range of motion, pelvis stable Neurologic Exam: alert, oriented x 3, cooperative, stab setter and driller II-XII nml as tested Skin Exam: normal color, other (cellulitis; abscess approx 2cm x 2cm medial to right areola. eschar present. ) Lymphatic Exam: No adenopathy SpO2 Interpretation: normal O2 Delivery: Room Air Procedures - Incision and Drainage Anesthesia: 1% Lidocaine cc's of anesthesia: 4 Blade Size: 15 I & D Procedure: betadine prep Results: moderate amount pus Ordered Tests: Active Orders 24 hr Category Date Time Status IV Insertion STAT Care 01/23/19 15:11 Active Wound Care STAT Care 01/23/19 15:45 Active BLOOD CULTURE Stat Lab 01/23/19 15:46 Received CBC W DIFF Stat Lab 01/23/19 15:11 Completed CULTURE,WOUND Stat Lab 01/23/19 16:16 Ordered Medication Summary Discontinued Medications Generic Name Dose Route Start Last Admin Trade Name Freq PRN Reason Stop Dose Admin Hydromorphone HCl 1 mg 01/23/19 15:13 01/23/19 15:22 Hydromorphone 1 Mg/Ml Ampule IV 01/23/19 15:14 1 mg STAT ONE Administration Hydromorphone HCl Confirm 01/23/19 15:20 Hydromorphone 1 Mg/Ml Ampule Administered 01/23/19 15:21 Dose 1 mg .ROUTE .STK-MED ONE Hydromorphone HCl Confirm 01/23/19 16:13 Hydromorphone 1 Mg/Ml Ampule Administered 01/23/19 16:14 Dose 1 mg .ROUTE .STK-MED ONE Hydromorphone HCl 1 mg 01/23/19 16:24 01/23/19 16:26 Hydromorphone 1 Mg/Ml Ampule IV 01/23/19 16:25 1 mg STAT ONE Administration Ampicillin Sodium/Sulbactam Sodium 3 gm in 100 mls @ 200 mls/hr 01/23/19 15: 47 01/23/19 16:13 Unasyn 3gm / Nacl 100ml IV 01/23/19 16:16 200 mls/hr STAT STA 200 mls/hr Administration Ampicillin Sodium/Sulbactam Sodium Confirm 01/23/19 16:02 Unasyn 3gm / Nacl 100ml Administered 01/23/19 16:03 Dose 3 gm in 100 mls @ ud .ROUTE .STK-MED ONE Ondansetron HCl 4 mg 01/23/19 15:11 01/23/19 15:21 Zofran 4 Mg/2 Ml Vial IV 01/23/19 15:12 4 mg STAT ONE Administration Ondansetron HCl Confirm 01/23/19 15:20 Zofran 4 Mg/2 Ml Vial Administered 01/23/19 15:21 Dose 4 mg .ROUTE .STK-MED ONE Ondansetron HCl Confirm 01/23/19 16:13 Zofran 4 Mg/2 Ml Vial Administered 01/23/19 16:14 Dose 4 mg .ROUTE .STK-MED ONE Ondansetron HCl 4 mg 01/23/19 16:24 01/23/19 16:25 Zofran 4 Mg/2 Ml Vial IV 01/23/19 16:25 4 mg STAT ONE Administration Lab/Rad Data: Laboratory Result Diagrams 01/23/19 15:11 Laboratory Results 01/23/19 Range/Units 15:11 WBC 11.0 H (4.0-10.5) K/mm3 RBC 4.24 (4.1-5.4) M/mm3 Hgb 12.4 (12.0-16.0) gm/dl Hct 39.0 (35-47) % MCV 92.0 (78-100) fl MCH 29.2 (26-32) pg MCHC 31.8 L (32-36) g/dl RDW 14.0 (11.5-14.0) % Plt Count 263 (150-450) K/mm3 MPV 10.1 H (6-9.5) fl Gran % 74.2 H (36.0-66.0) % Eos # (Auto) 0.21 (0-0.5) Absolute Lymphs (auto) 1.86 (1.0-4.6) Absolute Monos (auto) 0.75 (0.0-1.3) Lymphocytes % 16.9 L (24.0-44.0) % Monocytes % 6.8 (0.0-12.0) % Eosinophils % 1.9 (0.00-5.0) % Basophils % 0.2 (0.0-0.4) % Absolute Granulocytes 8.14 H (1.4-6.9) Basophils # 0.02 (0-0.4) - Progress Progress: improved, pain not gone completely, re-examined Counseled pt/family regarding: lab results, diagnosis, need for follow-up - Departure Departure Disposition: Home Clinical Impression: Abscess of right breast Condition: Stable Critical Care Time: No Referrals: SERGEY RAMIREZ [Primary Care Provider] - Additional Instructions: return to ED tomorrow for reevaluation. take medications as prescribed. shower and soap directly into open wound 3 times daily. cover with nonstick bandaid. Prescriptions: Hydrocodone/APAP 5/325 [Cicero 5/325 mg] 1 each PO Q6H PRN PRN #10 tablet MDD 4 PRN Reason: Pain Smz/Tmp Ds Tablet [Bactrim Ds Tablet] 1 udtab PO BID #14 tablet
[2019-01-23] MEDS ORDERED: Zofran 4 MG/2 ML VIAL IV ONE ×2 (15:11→16:24)
[2019-01-23] MEDS ORDERED: Hydromorphone 1 mg/ml Ampule IV ONE ×2 (15:13→16:24)
[2019-01-23] MEDS ORDERED: Hydromorphone 1 mg/ml Ampule ONE ×2 (15:20→16:13)
[2019-01-23] MEDS ORDERED: Zofran 4 MG/2 ML VIAL ONE ×2 (15:20→16:13)
[2019-01-23] MEDS ORDERED: Unasyn 3GM / NaCl 100ML 3 GM/100 ML IVPB IV STA (15:47)
[2019-01-23] MEDS ORDERED: Unasyn 3GM / NaCl 100ML 3 GM/100 ML IVPB ONE (16:02)
[2019-01-23 16:04] LABS: BASOPHIL % 0.2 % (0.0-0.4); Basophil (Absolute #) 0.02 (0-0.4); Eosinophil % 1.9 % (0.00-5.0); Eosinophil (Absolute #) 0.21 (0-0.5); Granulocyte Absolute (ANC) 8.14 (1.4-6.9); Granulocytes % 74.2 % (36.0-66.0); Hemoglobin 12.4 gm/dl (12.0-16.0); Lymphocyte (Absolute #) 1.86 (1.0-4.6); Lymphocytes % 16.9 % (24.0-44.0); Mean Corpuscular Hemoglobin 29.2 pg (26-32); Mean Corpuscular Hgb Concent. 31.8 g/dl (32-36); Mean Platelet Volume 10.1 fl (6-9.5); Monocyte (Absolute #) 0.75 (0.0-1.3); Monocytes % 6.8 % (0.0-12.0); Platelet Count 263 K/mm3 (150-450); Red Blood Count 4.24 M/mm3 (4.1-5.4)
[2019-01-23 16:59] VITALS: BP 119/71; PULSE 96; O2SAT 98
== END 2019-01-23 17:01 | disposition home or self-care (01) ==
LOC: ED 14:14
DX: N61.1 Abscess of the breast and nipple (principal)
CPT/HCPCS: 10060; 36000; 36415; 85025; 87040; 87070; 96365; 96374; 96375; 96376; 99284; J0295; J1170; J2405

== ENCOUNTER 2019-01-24 17:05 | Emergency (ER) | payer MEDICAID ==
--- NOTE | 2019-01-24 17:33 | ERPHSYRPT ---
- History of Present Illness Time Seen by Provider: 01/24/19 17:21 Source: patient Exam Limitations: no limitations Physician History: Pt was treated here yesterday with right breast abscess, I&D was performed, and asked to return today for wound check. She denies severe pain, bleeding or severe discharge, no fever, headaches, nausea, or other complaints. Timing/Duration: yesterday Severity: mild Location: other (right breast) Possible Causes: no cause identified Modifying Factors: Improves With: other (Bactrim DS BID) Associated Symptoms: denies symptoms Allergies/Adverse Reactions: latex Adverse Reaction (Verified 01/23/19 15:26) Hx Tetanus, Diphtheria Vaccination/Date Given: No - Review of Systems Constitutional: No Symptoms Ears, Nose, & Throat: No Symptoms Respiratory: No Symptoms Cardiac: No Symptoms Abdominal/Gastrointestinal: No Symptoms Musculoskeletal: No Symptoms Skin: Other (abscess right breast, drained) Neurological: No Symptoms All Other Systems: Reviewed and Negative - Past Medical History Pertinent Past Medical History: Yes Neurological History: No Pertinent History ENT History: No Pertinent History Cardiac History: No Pertinent History Respiratory History: Asthma, Pneumonia Endocrine Medical History: No Pertinent History Musculoskeletal History: No Pertinent History GI Medical History: No Pertinent History History: No Pertinent History Psycho-Social History: No Pertinent History Female Reproductive Disorders: No Pertinent History Other Medical History: IN 2018 - Past Surgical History Past Surgical History: No Neuro Surgical History: No Pertinent History Cardiac: No Pertinent History Respiratory: No Pertinent History Gastrointestinal: No Pertinent History Genitourinary: No Pertinent History Musculoskeletal: No Pertinent History Female Surgical History: Section - Social History Smoking Status: Current every day smoker How long have you smoked: 14yrs Exposure to second hand smoke: Yes Drug Use: marijuana Patient Lives Alone: Yes - Physical Exam General Appearance: no apparent distress Ears, Nose, Throat Exam: normal ENT inspection Neck Exam: normal inspection, non-tender Respiratory Exam: normal breath sounds, lungs clear Cardiovascular Exam: regular rate/rhythm, normal heart sounds Gastrointestinal/Abdomen Exam: soft Extremity Exam: normal inspection Neurologic Exam: alert, oriented x 3 Skin Exam: other (right breast 3-4 cm indurated lump in the right breast, next to the nipple on the medial side, 1.5 cm skin opening, with greyish fibrin detritus, and slight sero-purulent discharge, no retained large amount of pus, no severe erythema edema.) SpO2 Interpretation: normal O2 Delivery: Room Air - Course Nursing assessment & vital signs reviewed: Yes - Progress Progress: unchanged Progress Note: 01/24/19 17:32 Pt was redressed with sterile saline and dry [id number], and advised to change dressing daily and follow up with her physician in 2-3 days, continue Bactrim DS as directed. 01/24/19 17:33 Culture is not resulted yet. Counseled pt/family regarding: diagnosis, need for follow-up - Departure Departure Disposition: Home Clinical Impression: Breast abscess, Wound check, abscess Condition: Stable Critical Care Time: No Referrals: SERGEY RAMIREZ [Primary Care Provider] - Instructions: Abscess Incision and Drainage (DC) Additional Instructions: Continue Bactrim DS as directed, and irrigate wound with sterile saline daily, change dry gauze dressings, and follow up with your physician in 2-3 days, return if severe pain, bleeding, fever> 102 F!
[2019-01-24 17:43] VITALS: BP 122/78; PULSE 87; O2SAT 98
== END 2019-01-24 17:40 | disposition home or self-care (01) ==
LOC: ED 17:05
DX: B02.9 Zoster without complications (principal)
CPT/HCPCS: 99283

== ENCOUNTER 2020-07-02 12:56 | Observation (INO) | payer OTHER ==
[2020-07-02 13:36] LABS: Appearance SLIGHTLY CLOUDY (CLEAR); Bilirubin NEGATIVE (NEGATIVE); Blood MODERATE Ery/ul (0-5); Epithelial Cells FEW /HPF (FEW); Glucose NEGATIVE (NEGATIVE); Ketones NEGATIVE (NEGATIVE); Leukocyte Esterase MODERATE (NEGATIVE); Nitrite NEGATIVE (NEGATIVE); Protein,Urine Dip NEGATIVE (Negative); RBC 0-2 /HPF (0-2); Specific Gravity 1.009 (1.005-1.025); Urobilinogen NEGATIVE mg/dL (0-1)
[2020-07-02 13:43] LABS: Amphetamine,Urine NEGATIVE (NEGATIVE); Barbiturate,Urine NEGATIVE (NEGATIVE); Benzodiazepine,Urine NEGATIVE (NEGATIVE); Cocaine,Urine NEGATIVE (NEGATIVE); Methadone,Urine NEGATIVE (NEGATIVE); Opiate,Urine NEGATIVE (NEGATIVE); PCP,Urine NEGATIVE (NEGATIVE); THC,Urine NEGATIVE (NEGATIVE)
[2020-07-02 13:52] VITALS: BP 119/67; PULSE 90
[2020-07-02] MEDS ORDERED: Rocephin 1000 MG INJ IM ONE (14:04)
[2020-07-02] MEDS ORDERED: Lactated Ringers 1,000 ML IV ONE ×2 (17:24→17:41)
== END 2020-07-02 20:00 | disposition home or self-care (01) ==
LOC: OB 12:56
PROVIDERS: ADMIT Family Medicine; ATTEND Family Medicine
DX: Z34.83 Encounter for supervision of other normal pregnancy, third trimester (principal); Z3A.34 34 weeks gestation of pregnancy
CPT/HCPCS: 80307; 81001; 84112; G0378; J0696

== ENCOUNTER 2020-07-03 13:53 | Inpatient (IN) | payer OTHER ==
[2020-07-03] MEDS ORDERED: Zofran 4 MG/2 ML VIAL IV PRN (14:12)
[2020-07-03] MEDS ORDERED: Lactated Ringers 1,000 ML IV ONE ×2 (14:19→14:22)
[2020-07-03] MEDS ORDERED: OB EPIDURAL NAROPIN/SUFENTANIL IN NACL EPIDURAL PRN (14:22)
[2020-07-03] MEDS ORDERED: Ephedrine Sulfate 50 MG/ML IV PRN (14:22)
[2020-07-03] MEDS ORDERED: PITOCIN 30 UNITS/ LR 500 ML 30 UNITS/500 ML IV.SOLN. IV SCH (14:30)
[2020-07-03 14:42] LABS: Absolute Neutrophil Ct (ANC) 11.83 (1.4-6.9); BASOPHIL % 0.1 % (0.0-0.4); Basophil (Absolute #) 0.02 (0-0.4); Eosinophil % 0.7 % (0.00-5.0); Eosinophil (Absolute #) 0.11 (0-0.5); Hemoglobin 10.8 gm/dl (12.0-16.0); Lymphocyte (Absolute #) 2.12 (1.0-4.6); Mean Cell Volume 92.4 fl (78-100); Mean Corpuscular Hemoglobin 29.3 pg (26-32); Mean Corpuscular Hgb Concent. 31.8 g/dl (32-36); Mean Platelet Volume 11.2 fl (7.5-11.0); Monocyte (Absolute #) 1.06 (0.0-1.3); Neutrophil % 78.2 % (36.0-66.0); Platelet Count 286 K/mm3 (150-450); Red Blood Count 3.68 M/mm3 (4.1-5.4); Red Cell Distribution Width 14.1 % (11.5-14.0); White Blood Count 15.1 K/mm3 (4.0-10.5)
[2020-07-03] MEDS ORDERED: CLINDAMYCIN-D5W 900 MG/50 ML*** 900 MG/50 ML BAG IV ONE ×2 (15:00→22:00)
[2020-07-03] MEDS ORDERED: XYLOCAINE 1% HCL 20 ML MDV ONE (15:09)
[2020-07-03] MEDS ORDERED: TUCKS TP PRN (16:04)
[2020-07-03] MEDS ORDERED: Dermoplast Spray TP PRN (16:04)
[2020-07-03] MEDS ORDERED: Dulcolax 10 MG SUPP PR PRN (16:04)
[2020-07-03] MEDS: MOTRIN 400 MG PO PRN ×2 (16:20→22:00)
[2020-07-03] MEDS: TYLENOL EXTRA STRENGTH 500 MG PO PRN ×2 (16:20→20:39)
[2020-07-03] MEDS ORDERED: Adacel Vial IM ONE (17:00)
[2020-07-03] MEDS: Colace 100 MG PO SCH (22:01)
[2020-07-04] MEDS: NORCO 5/325 MG PO PRN ×2 (00:26→05:46)
[2020-07-04] MEDS: MOTRIN 400 MG PO PRN ×3 (05:45→20:30)
[2020-07-04 05:56] VITALS: O2SAT 97
[2020-07-04 06:31] LABS: Absolute Neutrophil Ct (ANC) 11.99 (1.4-6.9); BASOPHIL % 0.1 % (0.0-0.4); Basophil (Absolute #) 0.02 (0-0.4); Eosinophil % 1.3 % (0.00-5.0); Eosinophil (Absolute #) 0.22 (0-0.5); Hematocrit 33.1 % (35-47); Hemoglobin 10.5 gm/dl (12.0-16.0); Lymphocyte (Absolute #) 3.36 (1.0-4.6); Lymphocytes % 19.6 % (24.0-44.0); Mean Cell Volume 92.5 fl (78-100); Mean Corpuscular Hemoglobin 29.3 pg (26-32); Mean Corpuscular Hgb Concent. 31.7 g/dl (32-36); Mean Platelet Volume 11.6 fl (7.5-11.0); Monocyte (Absolute #) 1.57 (0.0-1.3); Monocytes % 9.1 % (0.0-12.0); Neutrophil % 69.9 % (36.0-66.0); Platelet Count 265 K/mm3 (150-450); Red Blood Count 3.58 M/mm3 (4.1-5.4); Red Cell Distribution Width 14.1 % (11.5-14.0); White Blood Count 17.2 K/mm3 (4.0-10.5)
[2020-07-04 06:49] LABS: Slide Review 1 YES
[2020-07-04] MEDS: FERREX 150 PO SCH (09:48)
[2020-07-04] MEDS: Colace 100 MG PO SCH ×2 (09:48→21:54)
[2020-07-04] MEDS: TYLENOL EXTRA STRENGTH 500 MG PO PRN ×2 (14:45→20:30)
[2020-07-04] MEDS ORDERED: Nicoderm CQ 21 MG TOP SCH (21:45)
--- NOTE | 2020-07-05 08:18 | PCM.DS ---
Discharge Summary Date of Admission: 07/03/20 14:05 Admitting Physician: SERGEY WANG Primary Care Provider: SERGEY WANG Allergies Allergies amoxicillin [From Augmentin] Allergy (Verified 07/02/20 13:28) clavulanic acid [From Augmentin] Allergy (Verified 07/02/20 13:28) latex Adverse Reaction (Verified 07/02/20 13:28) Hospital Summary - Hospital Course Hospital Course: Pt is 30 yo , pt of mine from [facility], who came in to LR at approx 36 weeks, 7 cm dilated in active labor. AROM done by Dr. Meyer and baby delivered 2 minutes later. Pt was very late to care, had one appt with me on 06/20/2020 and had third trimester u/s for dates. She did have 1 previous c/section, her most recent delivery before this one, for nonreassuring FHT (per mom). She is feeling well, bleeding is normal, no dizziness. Corine po well. Would like to be discharged to home and f/u with Dr. Meyer for BTL. - Vitals & Intake/Output Vital Signs: Vital Signs Temperature 98.5 F 07/05/20 02:00 Pulse Rate 85 07/05/20 02:00 Respiratory Rate 16 07/05/20 02:00 Blood Pressure 127/79 07/05/20 02:00 O2 Sat by Pulse Oximetry 97 07/04/20 05:00 Intake & Output: Intake & Output 07/02/20 07/03/20 07/04/20 07/05/20 11:59 11:59 11:59 11:59 Intake Total 2760 1000 Balance 2760 1000 Weight 79.379 kg - Lab Result Diagrams: 07/04/20 05:50 - Procedures and Test Procedures and Tests throughout Hospitalization: Therapy Orders & Screens 07/03/20 15:25 Standby STAT Comment: Diagnosis: R/O labor Discharge Exam General Appearance: no apparent distress, alert Neurologic Exam: oriented x 3, cooperative Eye Exam: eyes nml inspection Respiratory Exam: normal breath sounds, lungs clear, wheezing (throughout, mild), No crackles/rales, No rhonchi Cardiovascular Exam: regular rate/rhythm, normal heart sounds, No murmur Extremity Exam: normal inspection, swelling (trace pretibial edema bilat) Skin Exam: normal color, warm, dry, No rash Final Diagnosis/Problem List - Final Discharge Diagnosis/Problem (1) Vaginal after delivery Current Visit: Yes Status: Acute Assessment & Plan: She had planned to consult with Dr. Meyer for this but I believe this was unplanned. Came in in active labor and delivered quickly with Dr. Meyer. 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 Meyer for BTL consultation (she already has an appt scheduled). Code(s): Z64.1 - PROBLEMS RELATED TO MULTIPARITY (4) Anemia Current Visit: No Status: Chronic Assessment & Plan: Home on iron. Code(s): D64.9 - ANEMIA, UNSPECIFIED - Discharge Disposition: Home, Self-Care Condition: Good Prescriptions: New Ferrous Sulfate 325 mg [Feosol 325 mg] 325 mg PO DAILY #30 tablet Ibuprofen 600 mg PO TID PRN #35 tablet PRN Reason: Pain Beclomethasone Dipropionate [Qvar] 8.7 gm IH BID #1 aer.w.adap Continue Vits W-Ca,Fe,FA(<1Mg) [] 1 each PO DAILY Albuterol Sulfate [Proair Digihaler] 90 mcg IH BID PRN Follow up with: SERGEY WANG [Primary Care Provider] -
[2020-07-05] MEDS: FERREX 150 PO SCH (09:54)
[2020-07-05] MEDS: Colace 100 MG PO SCH (09:54)
[2020-07-05] MEDS ORDERED: Flovent 110 Mcg MDI IH SCH (10:00)
[2020-07-05 17:10] VITALS: BP 134/71; PULSE 96
== END 2020-07-05 16:45 | disposition home or self-care (01) | DRG 807 ==
LOC: OB 14:05 → OBSVTOIN 14:05 → INTOOBSV 14:05 → UNDODISOB 14:44
PROVIDERS: ADMIT Family Medicine; ATTEND Family Medicine
PROC: 10E0XZZ Delivery of Products of Conception, External Approach (ICD-10-PCS; principal; 2020-07-03)
DX: O80 Encounter for full-term uncomplicated delivery (principal); Z37.0 Single live birth; Z3A.36 36 weeks gestation of pregnancy; D64.9 Anemia, unspecified
CPT/HCPCS: 36415; 59612; 85025; 86592; 86701; 86702; 86762; 87340; 87389; 87535; 90471; 90715; 94799; G0378; J2590; J2795; A9270-GY

== ENCOUNTER 2021-07-30 02:28 | Inpatient (IN) | payer OTHER ==
[~2021-07-30 02:28] MED LIST: Lactated Ringers 1,000 ML IV ONE; PITOCIN 30 UNITS/ LR 500 ML 500 ML IV ONE
[2021-07-30] MEDS ORDERED: SOD CITRATE-CITRIC ACID SOLN ONE (02:42)
[2021-07-30] MEDS ORDERED: Pepcid 20 MG VIAL IV ONE (02:42)
[2021-07-30] MEDS ORDERED: CEFAZOLIN 2 GM-D5W BAG** 2 GM/50 ML ML IV ONE (02:42)
[2021-07-30] MEDS ORDERED: Reglan 10 MG/2 ML ONE (02:42)
[2021-07-30 02:52] LABS: Absolute Neutrophil Ct (ANC) 13.22 (1.4-6.9); Basophil (Absolute #) 0.02 (0-0.4); Eosinophil % 0.9 % (0.00-5.0); Eosinophil (Absolute #) 0.17 (0-0.5); Hemoglobin 10.8 gm/dl (12.0-16.0); Lymphocyte (Absolute #) 3.47 (1.0-4.6); Lymphocytes % 18.8 % (24.0-44.0); Mean Cell Volume 90.9 fl (78-100); Mean Corpuscular Hemoglobin 29.8 pg (26-32); Mean Corpuscular Hgb Concent. 32.7 g/dl (32-36); Mean Platelet Volume 11.7 fl (7.5-11.0); Monocytes % 8.7 % (0.0-12.0); Neutrophil % 71.5 % (36.0-66.0); Platelet Count 272 K/mm3 (150-450); Red Blood Count 3.63 M/mm3 (4.1-5.4); Red Cell Distribution Width 13.9 % (11.5-14.0); White Blood Count 18.5 K/mm3 (4.0-10.5)
[2021-07-30 02:57] LABS: INR 0.88 (0.8-3.0); PROTIME 10.4 SECONDS (9.4-12.5)
[2021-07-30] MEDS ORDERED: Nubain 10 MG/ML IV PRN (02:57)
[2021-07-30] MEDS ORDERED: Dulcolax 10 MG SUPP PR PRN (02:57)
[2021-07-30] MEDS ORDERED: LANSINOH 40 GM TOP PRN (02:57)
[2021-07-30] MEDS ORDERED: Anucort-HC SUPPOSITORY PR PRN (02:57)
[2021-07-30] MEDS ORDERED: MORPHINE SULFATE 2 MG INJ IV PRN (02:57)
[2021-07-30] MEDS ORDERED: Zofran 4 MG/2 ML VIAL IV PRN ×2 (02:57)
[2021-07-30] MEDS ORDERED: CLARITIN 10 MG PO PRN (02:57)
[2021-07-30] MEDS ORDERED: CORTISONE 1% CREAM TP PRN (02:57)
[2021-07-30] MEDS ORDERED: BENADRYL 50 MG/ML IV PRN (02:57)
[2021-07-30] MEDS ORDERED: Narcan 0.4 MG/ML IV PRN (02:57)
[2021-07-30] MEDS ORDERED: DEMEROL 50 MG IV PRN ×2 (02:57→05:00)
[2021-07-30] MEDS ORDERED: TYLENOL EXTRA STRENGTH 500 MG PO PRN (02:57)
[2021-07-30 02:59] LABS: PTT 26.4 SECONDS (25.1-36.5)
[2021-07-30] MEDS ORDERED: Reglan 10 MG/2 ML IV SCH (03:00)
[2021-07-30] MEDS ORDERED: CEFAZOLIN 2 GM-D5W BAG** 2 GM/50 ML ML IV SCH (03:00)
[2021-07-30] MEDS ORDERED: Pepcid 20 MG VIAL IV SCH (03:00)
[2021-07-30] MEDS ORDERED: HOLD NARCOTIC ANALGESICS AND SEDATIVES X24 HR MC PRN (03:00)
[2021-07-30] MEDS ORDERED: SOD CITRATE-CITRIC ACID SOLN PO SCH (03:00)
[2021-07-30] MEDS: Lactated Ringers 1,000 ML IV SCH ×2 (03:13→03:14)
[2021-07-30 03:18] LABS: COVID AG -BINAX NOW RAPID TEST NEGATIVE (NEGATIVE)
[2021-07-30] MEDS ORDERED: SUBLIMAZE 250 MCG/5 ML ONE (03:23)
[2021-07-30] MEDS ORDERED: Quelicin Fliptop 200 MG/10 ML ONE (03:23)
[2021-07-30] MEDS ORDERED: Pitocin 10 UNITS/ML ONE (03:23)
[2021-07-30] MEDS ORDERED: DIPRIVAN 200 MG/20 ML IV ONE (03:23)
[2021-07-30] MEDS ORDERED: Versed 2 MG/2 ML Injection ONE (03:27)
[2021-07-30 03:46] LABS: Appearance CLEAR (CLEAR); Bilirubin NEGATIVE (NEGATIVE); Blood LARGE Ery/ul (0-5); Epithelial Cells RARE /HPF (FEW); Glucose NEGATIVE (NEGATIVE); Ketones NEGATIVE (NEGATIVE); Leukocyte Esterase NEGATIVE (NEGATIVE); Mucus SLIGHT /HPF (NEGATIVE); Nitrite NEGATIVE (NEGATIVE); Protein,Urine Dip 30 (Negative); Specific Gravity 1.003 (1.005-1.025); Urobilinogen NEGATIVE mg/dL (0-1)
[2021-07-30 03:49] LABS: Amphetamine,Urine NEGATIVE (NEGATIVE); Barbiturate,Urine NEGATIVE (NEGATIVE); Benzodiazepine,Urine NEGATIVE (NEGATIVE); Cocaine,Urine NEGATIVE (NEGATIVE); Methadone,Urine NEGATIVE (NEGATIVE); Opiate,Urine NEGATIVE (NEGATIVE); PCP,Urine NEGATIVE (NEGATIVE); THC,Urine POSITIVE (NEGATIVE)
[2021-07-30] MEDS ORDERED: Marcaine 0.5%/Epinephrine 10 ML ONE (03:57)
[2021-07-30] MEDS ORDERED: Decadron 4 MG INJ ONE (03:57)
[2021-07-30 04:09] LABS: RH TYPING POSITIVE
[2021-07-30 04:11] LABS: Antibody Screen POSITIVE (NEGATIVE)
[2021-07-30] MEDS ORDERED: BRIDION 200MG/2ML IV ONE (04:21)
[2021-07-30] MEDS ORDERED: TORAdol 30 mg Injection ONE (04:22)
[2021-07-30] MEDS ORDERED: SUBLIMAZE 100 MCG/2 ML ONE (04:27)
[2021-07-30] MEDS ORDERED: DILAUDID 2 MG INJECTION ONE (04:31)
[2021-07-30] MEDS: Dextrose 5%-Lr IV Solution 1000 ML 1,000 ML IV SCH ×2 (05:30→13:36)
[2021-07-30 06:20] LABS: Appearance CLEAR (CLEAR); Bilirubin NEGATIVE (NEGATIVE); Blood NEGATIVE Ery/ul (0-5); Glucose NEGATIVE (NEGATIVE); Ketones NEGATIVE (NEGATIVE); Leukocyte Esterase NEGATIVE (NEGATIVE); Nitrite NEGATIVE (NEGATIVE); Protein,Urine Dip NEGATIVE (Negative); Specific Gravity 1.011 (1.005-1.025); Urobilinogen NEGATIVE mg/dL (0-1)
[2021-07-30] MEDS ORDERED: DILAUDID 1 MG/1ML PCA IV PRN (07:00)
[2021-07-30] MEDS: PERCOCET TABLET 5/325MG PO PRN ×4 (08:06→23:03)
[2021-07-30] MEDS: Colace 100 MG PO SCH ×2 (19:40→20:09)
[2021-07-30] MEDS: FERREX 150 PO SCH (19:40)
[2021-07-30] MEDS: Sodium Chloride 0.9% 10 ML FLUSH Syringe IV SCH (19:42)
[2021-07-30] MEDS: MOTRIN 400 MG PO PRN (20:08)
[2021-07-31] MEDS: PERCOCET TABLET 5/325MG PO PRN (04:58)
[2021-07-31 05:16] LABS: Absolute Neutrophil Ct (ANC) 19.68 (1.4-6.9); Basophil (Absolute #) 0.02 (0-0.4); Eosinophil % 0.1 % (0.00-5.0); Eosinophil (Absolute #) 0.03 (0-0.5); Hematocrit 28.9 % (35-47); Hemoglobin 9.3 gm/dl (12.0-16.0); Lymphocyte (Absolute #) 3.62 (1.0-4.6); Lymphocytes % 14.4 % (24.0-44.0); Mean Cell Volume 92.3 fl (78-100); Mean Corpuscular Hemoglobin 29.7 pg (26-32); Mean Corpuscular Hgb Concent. 32.2 g/dl (32-36); Mean Platelet Volume 11.3 fl (7.5-11.0); Monocyte (Absolute #) 1.76 (0.0-1.3); Neutrophil % 78.4 % (36.0-66.0); Platelet Count 244 K/mm3 (150-450); Red Blood Count 3.13 M/mm3 (4.1-5.4); Red Cell Distribution Width 13.7 % (11.5-14.0)
[2021-07-31 05:31] LABS: White Blood Count 25.1 K/mm3 (4.0-10.5)
[2021-07-31 06:44] LABS: Slide Review 1 YES
[2021-07-31] MEDS: Sodium Chloride 0.9% 10 ML FLUSH Syringe IV SCH ×3 (07:13→19:22)
[2021-07-31] MEDS: Dextrose 5%-Lr IV Solution 1000 ML 1,000 ML IV SCH (07:15)
--- NOTE | 2021-07-31 08:40 | PCM.NOTE ---
Date and Time: 07/31/21 0838 Subjective Assessment: has some cough and congestion, mild lochia, pain is well controlled. patient is a smoker, has some sputum Objective Exam General Appearance: no apparent distress, alert Skin Exam: normal color, warm, dry Respiratory Exam: rhonchi, No respiratory distress, No accessory muscle use, No wheezing Cardiovascular Exam: regular rate/rhythm, normal heart sounds Gastrointestinal/Abdomen Exam: soft, other (incision clean, dry, intact) Extremity Exam: normal inspection, normal range of motion OBJECTIVE DATA Vital Signs: Vital Signs - 24 hr Temp Pulse Resp BP Pulse Ox 07/31/21 04:00 97.9 F 67 18 129/71 91 L 07/30/21 20:00 98.3 F 81 20 127/63 07/30/21 16:00 97.9 F 54 L 18 109/70 07/30/21 14:13 98.5 F 71 18 114/63 99 07/30/21 12:30 98.5 F 71 128/76 99 07/30/21 12:00 98.7 F 68 18 118/78 99 07/30/21 11:00 98 07/30/21 10:00 97 07/30/21 09:30 98.5 F 59 L 18 125/76 99 07/30/21 09:19 98.5 F 73 118/79 97 07/30/21 09:00 97 Pain Assessment - Last Documented Pain Intensity [Anterior] 7 Pain Intensity 0 Pain Scale Used 0-10 Pain Scale Intake and Output: Intake & Output 07/28/21 07/29/21 07/30/21 07/31/21 11:59 11:59 11:59 11:59 Intake Total 1840 Output Total 800 Balance -800 1840 Weight 88.451 kg 88.451 kg Lab Results: Lab Results-Last 24 Hours 07/31/21 Range/Units 05:08 WBC 25.1 H* (4.0-10.5) K/mm3 RBC 3.13 L (4.1-5.4) M/mm3 Hgb 9.3 L (12.0-16.0) gm/dl Hct 28.9 L (35-47) % MCV 92.3 (78-100) fl MCH 29.7 (26-32) pg MCHC 32.2 (32-36) g/dl RDW 13.7 (11.5-14.0) % Plt Count 244 (150-450) K/mm3 MPV 11.3 H (7.5-11.0) fl Gran % 78.4 H (36.0-66.0) % Eos # (Auto) 0.03 (0-0.5) Absolute Lymphs (auto) 3.62 (1.0-4.6) Absolute Monos (auto) 1.76 H (0.0-1.3) Lymphocytes % 14.4 L (24.0-44.0) % Monocytes % 7.0 (0.0-12.0) % Eosinophils % 0.1 (0.00-5.0) % Basophils % 0.1 (0.0-0.4) % Absolute Granulocytes 19.68 H (1.4-6.9) Basophils # 0.02 (0-0.4) Slides for Path Review YES Assessment/Plan (1) delivery delivered Current Visit: Yes Status: Acute Assessment & Plan: elevated white count noted, see lung exam. will get chest xray and start antibiotics and nebs Code(s): O82 - ENCOUNTER FOR DELIVERY WITHOUT INDICATION (2) Tubal ligation status Current Visit: Yes Status: Acute Code(s): Z98.51 - TUBAL LIGATION STATUS (3) Acute bronchitis Current Visit: Yes Status: Acute Code(s): J20.9 - ACUTE BRONCHITIS, UNSPECIFIED
--- NOTE | 2021-07-31 09:35 | XRAY ---
Indication: Cough and coarse lung sounds. Comparison: November 10, 2018. Portable chest demonstrates new mild right base infiltrate/atelectasis/small effusion and new minimal left base subsegmental atelectasis/scarring. Remaining heart, upper lungs, and bony thorax normal.
[2021-07-31] MEDS: Colace 100 MG PO SCH ×2 (09:42→22:10)
[2021-07-31] MEDS: FERREX 150 PO SCH (09:42)
[2021-07-31] MEDS: Levofloxacin 500 MG Tablet PO SCH (09:42)
[2021-07-31] MEDS: NORCO 5/325 MG PO PRN ×4 (09:49→22:10)
--- NOTE | 2021-07-31 09:54 | OP ---
SURGERY DATE/TIME: 07/30/2021 0329 PREOPERATIVE DIAGNOSES: 1) Term intrauterine in active labor. 2) History of prior section. 3) Desires permanent sterilization. POSTOPERATIVE DIAGNOSES: 1) Term intrauterine in active labor. 2) History of prior section. 3) Desires permanent sterilization. PROCEDURES: 1) Repeat low transverse section. 2) Bilateral tubal ligation. SURGEON: Austyn Xiao M.D. ESTIMATED BLOOD LOSS: 300 ml. URINE OUTPUT: 400 ml of clear straw-colored urine. ANESTHESIA: General by Hossein Watson CRNA. SPECIMENS: 1) Bilateral fallopian tube segments. 2) Placenta was sent off pathology. DESCRIPTION OF PROCEDURE: After informed written consent was obtained, the patient was taken to the operating room. She underwent general anesthesia and was prepped and draped in the usual sterile fashion. A low transverse skin incision was made by knife and carried down through the subcutaneous fat to the level of the fascia. The fascia was nicked on both sides of the midline and extended horizontal using curved Parker scissors. The superior free edge of the fascia was grasped with Aditya clamps and the underlying rectus muscles were dissected free. The same was repeated inferiorly. The peritoneal cavity was then opened bluntly and extended in horizontal fashion. Bladder flap was created and reflected over lower uterine segment. Horizontal uterine incision was made by knife and carried down to the level of the amniotic membranes which were carefully artificially ruptured. A viable female infant was delivered from the vertex presentation. The cord was clamped and cut. The oropharynx and nares were bulb suctioned free. She was stimulated and passed off to the awaiting nursery team with cry present and spontaneous respirations. The placenta was manually extracted from the uterus and the uterus exteriorized. Uterine cavity was sponge curetted clean with lap sponge. Uterine incision was closed with 0 chromic in a running locked fashion. Good closure and good hemostasis were achieved. The left fallopian tube was grasped with a Nehemias. Cautery was used to make a window in the mesoappendix and then the proximal and distal tube segments were ligated with 0 chromic tie. Interceding tube segment was dissected free with Metzenbaum scissors and the free edge of the tube was cauterized with electrocautery and the segment was sent for pathology. The same was repeated on the right side with no complications. The posterior cul-de-sac was wiped free of blood and clot and the uterus was returned to the peritoneal cavity. There was a small area of oozing in the right lateral aspect of the incision which was remedied with figure-of-8 suture with 0 Vicryl with good hemostasis. The remainder of the incision was noted to be hemostatic with good closure. Next, the fascia was closed with 0 Vicryl in a running fashion. Good closure and good hemostasis were achieved. Subcutaneous fat was irrigated with warm, sterile saline and any areas of oozing were cauterized with electrocautery. Finally, the skin layer was closed with 4-0 undyed Vicryl in a running subcuticular fashion. Steri-Strips and occlusive dressing were placed over the incision. The patient was transferred to the recovery room in good condition.
[2021-07-31] MEDS ORDERED: DUONEB 0.5-3 MG/3 ml Neb IH ONE (10:54)
[2021-07-31] MEDS: DUONEB 0.5-3 MG/3 ml Neb IH SCH ×3 (11:16→18:47)
[2021-07-31] MEDS: MOTRIN 400 MG PO PRN ×2 (13:29→19:30)
[2021-07-31] MEDS ORDERED: NORCO 5/325 MG PO PRN (15:49)
[2021-07-31] MEDS: Mylicon 80MG PO PRN (18:04)
[2021-08-01] MEDS: Mylicon 80MG PO PRN (01:57)
[2021-08-01] MEDS: MOTRIN 400 MG PO PRN ×2 (01:57→09:22)
[2021-08-01] MEDS: NORCO 5/325 MG PO PRN (03:59)
[2021-08-01 05:13] LABS: Absolute Neutrophil Ct (ANC) 11.82 (1.4-6.9); Basophil (Absolute #) 0.04 (0-0.4); Eosinophil % 1.4 % (0.00-5.0); Eosinophil (Absolute #) 0.24 (0-0.5); Hematocrit 29.2 % (35-47); Hemoglobin 9.2 gm/dl (12.0-16.0); Lymphocyte (Absolute #) 3.76 (1.0-4.6); Lymphocytes % 21.7 % (24.0-44.0); Mean Cell Volume 92.7 fl (78-100); Mean Corpuscular Hemoglobin 29.2 pg (26-32); Mean Corpuscular Hgb Concent. 31.5 g/dl (32-36); Mean Platelet Volume 10.8 fl (7.5-11.0); Monocyte (Absolute #) 1.43 (0.0-1.3); Monocytes % 8.3 % (0.0-12.0); Neutrophil % 68.4 % (36.0-66.0); Platelet Count 280 K/mm3 (150-450); Red Blood Count 3.15 M/mm3 (4.1-5.4); Red Cell Distribution Width 13.9 % (11.5-14.0); White Blood Count 17.3 K/mm3 (4.0-10.5)
[2021-08-01] MEDS ORDERED: DUONEB 0.5-3 MG/3 ml Neb IH ONE ×2 (06:42→10:26)
[2021-08-01] MEDS: DUONEB 0.5-3 MG/3 ml Neb IH SCH ×2 (07:16→10:43)
--- NOTE | 2021-08-01 08:20 | PCM.DS ---
Discharge Summary Date of Admission: 07/30/21 02:28 Admitting Physician: DESHAUN INTERIANO Consults: Consults on Case 07/30/21 02:53 Notify Physician OF ADMISSION 07/30/21 02:57 Notify Anesthesia Provider ROUTINE 07/30/21 03:00 Notify Anesthesia Provider PRN 07/30/21 05:55 Navigation ONCE 07/30/21 08:00 Notify Physician ROUTINE Primary Care Provider: DESHAUN INTERIANO Allergies Allergies amoxicillin [From Augmentin] Allergy (Verified 07/31/21 21:29) clavulanic acid [From Augmentin] Allergy (Verified 07/31/21 21:29) latex Adverse Reaction (Verified 07/31/21 21:29) Hospital Summary - Hospital Course Hospital Course: patient admitted with SROM at 36 5/7 wks ega, had repeat with BTL. she had elevated white count and cough , some pneumonia possibly on xray vs atelectasis. wbc improved with levaquin and nebs, breath sounds much more clear on date of discharge. - Vitals & Intake/Output Vital Signs: Vital Signs Temperature 98.5 F 08/01/21 02:00 Pulse Rate 81 08/01/21 07:00 Respiratory Rate 16 08/01/21 07:00 Blood Pressure 140/85 08/01/21 02:00 O2 Sat by Pulse Oximetry 92 L 08/01/21 07:00 Intake & Output: Intake & Output 07/29/21 07/30/21 07/31/21 08/01/21 11:59 11:59 11:59 11:59 Intake Total 1840 1080 Output Total 800 0 Balance -800 1840 1080 Weight 88.451 kg 88.451 kg - Lab Result Diagrams: 08/01/21 05:05 Lab Results-Last 24 Hrs: Lab Results-Last 24 Hours 08/01/21 Range/Units 05:05 WBC 17.3 H (4.0-10.5) K/mm3 RBC 3.15 L (4.1-5.4) M/mm3 Hgb 9.2 L (12.0-16.0) gm/dl Hct 29.2 L (35-47) % MCV 92.7 (78-100) fl MCH 29.2 (26-32) pg MCHC 31.5 L (32-36) g/dl RDW 13.9 (11.5-14.0) % Plt Count 280 (150-450) K/mm3 MPV 10.8 (7.5-11.0) fl Gran % 68.4 H (36.0-66.0) % Eos # (Auto) 0.24 (0-0.5) Absolute Lymphs (auto) 3.76 (1.0-4.6) Absolute Monos (auto) 1.43 H (0.0-1.3) Lymphocytes % 21.7 L (24.0-44.0) % Monocytes % 8.3 (0.0-12.0) % Eosinophils % 1.4 (0.00-5.0) % Basophils % 0.2 (0.0-0.4) % Absolute Granulocytes 11.82 H (1.4-6.9) Basophils # 0.04 (0-0.4) Micro Results-Entire Visit: Microbiology 07/30/21 04:15 Urine Culture - Final Catherized NO GROWTH - Radiology Exams Ordered Rad Exams-Entire Visit: Radiology Procedures Category Date Time Status CHEST 1 VIEW (PORTABLE) Routine Exams 07/31/21 08:40 Completed - Procedures and Test Procedures and Tests throughout Hospitalization: Therapy Orders & Screens 08/01/21 07:00 Respiratory Therapy Assessment DAILY Comment: Diagnosis: SROM Discharge Exam General Appearance: no apparent distress Respiratory Exam: lungs clear, rhonchi, No respiratory distress, No accessory muscle use Cardiovascular Exam: regular rate/rhythm Gastrointestinal/Abdomen Exam: soft, other (incision clean, dry, intact), No t enderness, No mass Extremity Exam: normal inspection, normal range of motion Final Diagnosis/Problem List - Final Discharge Diagnosis/Problem (1) delivery delivered Current Visit: Yes Status: Acute Code(s): O82 - ENCOUNTER FOR DELIVERY WITHOUT INDICATION (2) Tubal ligation status Current Visit: Yes Status: Acute Code(s): Z98.51 - TUBAL LIGATION STATUS (3) Acute bronchitis Current Visit: Yes Status: Acute Assessment & Plan: home on levaquin and albuterol Code(s): J20.9 - ACUTE BRONCHITIS, UNSPECIFIED - Discharge Disposition: Home, Self-Care Condition: Stable Prescriptions: New [place] Polysaccharides Complex [Ferrex 150] 150 mg PO DAILY #30 cap Hydrocodone/Acetaminophen [Hydrocodone-Acetamin 5-325 mg] 1 tab PO Q4HPRN PRN #30 tablet MDD 6 PRN Reason: Pain Levofloxacin [Levofloxacin 500 MG Tablet] 500 mg PO DAILY #6 tablet Albuterol 8 gm Mdi Hfa [Ventolin Hfa MDI] 2 puffs IH Q4-6HPRN PRN #1 units PRN Reason: Cough Albuterol Sulfate [Proair Hfa] 2 puffs IH Q4-6HPRN PRN #1 unit PRN Reason: Cough Discontinued Vits W-Ca,Fe,FA(<1Mg) [] 1 each PO DAILY Follow up with: DESHAUN INTERIANO MD [Primary Care Provider] -
[2021-08-01] MEDS: FERREX 150 PO SCH (09:21)
[2021-08-01] MEDS: Colace 100 MG PO SCH (09:21)
[2021-08-01] MEDS: Levofloxacin 500 MG Tablet PO SCH (09:22)
[2021-08-01 09:26] VITALS: BP 134/73
[2021-08-01 10:46] VITALS: PULSE 93; O2SAT 96
== END 2021-08-01 11:15 | disposition home or self-care (01) | DRG 785 ==
LOC: OB 02:28 → OBSVTOIN 02:28 → PREINTOOBSV 08-02 01:45
PROVIDERS: ADMIT Family Medicine; ATTEND Family Medicine
PROC: 10D00Z1 Extraction of Products of Conception, Low, Open Approach (ICD-10-PCS; principal; 2021-07-30)
PROC: 0UL70ZZ Occlusion of Bilateral Fallopian Tubes, Open Approach (ICD-10-PCS; 2021-07-30)
DX: O34.219 Maternal care for unspecified type scar from previous cesarean delivery (principal); Z3A.36 36 weeks gestation of pregnancy; Z37.0 Single live birth; J20.9 Acute bronchitis, unspecified; Z30.2 Encounter for sterilization
CPT/HCPCS: 36415; 64486; 64488; 71045; 76937; 76942; 80307; 81001; 81003; 85025; 85610; 85730; 86850; 86870; 86900; 86901; 87081; 87086; 94640; 94760; 94799; 96365; 99000; 99140; G0378; J0330; J0690; J1100; J1170; J1885; J2250; J2405; J2590; J2704; J3010; L0625; A9270-GY

== ENCOUNTER 2021-12-11 17:24 | Emergency (ER) | payer OTHER ==
[2021-12-11] MEDS ORDERED: MORPHINE SULFATE 4 MG INJ IV ONE ×2 (18:17→19:13)
[2021-12-11] MEDS ORDERED: MORPHINE SULFATE 4 MG INJ ONE ×2 (18:20→19:33)
--- NOTE | 2021-12-11 18:23 | ERPHSYRPT ---
- History of Present Illness Time Seen by Provider: 12/11/21 18:24 Source: patient Exam Limitations: no limitations Patient Subjective Stated Complaint: pt here for infection to right breast, she states she is not breast feeding and had a baby on 07/30, was seen and placed on clindomycin. states is getting worse Triage Nursing Assessment: pt alert, walked in, resp easy, skin w/d/p, has swelling, redness to right breast, Physician History: Patient is a 31-year-old female presents to emergency department for evaluation of a breast abscess. Patient was diagnosed with mastitis approximately a week ago. Patient was treated with clindamycin. Over the course of the week patient states the pain has worsened. There is now a pustule at the site of the mastitis. During physical examination this pustule began to spontaneously drain. No fever. Pain is localized. No radiation. Pain reproduced with palpation to the area of involvement. Pain improved with rest. Patient is otherwise healthy. She is not breast-feeding. Patient voices no other complaint or concerns at this time. Portions of this note were created with voice recognition technology. There may be grammatical, spelling, punctuation or sound alike errors Timing/Duration: today Severity: moderate Modifying Factors: Improves With: other Associated Symptoms: denies symptoms Allergies/Adverse Reactions: amoxicillin [From Augmentin] Allergy (Verified 12/11/21 17:35) clavulanic acid [From Augmentin] Allergy (Verified 12/11/21 17:35) latex Adverse Reaction (Verified 12/11/21 17:35) Home Medications: clindamycin HCL [Cleocin HCl] 1 ea QID 12/11/21 [History] Hx Tetanus, Diphtheria Vaccination/Date Given: No Hx Influenza Vaccination/Date Given: Yes Hx Pneumococcal Vaccination/Date Given: No Immunizations Up to Date: Yes Travel Risk - International Travel Have you traveled outside of the country in past 3 weeks: No - Coronavirus Screening Are you exhibiting any of the following symptoms?: No - Vaccine Status Have you recieved a Covid-19 vaccination: No - Review of Systems Constitutional: No Symptoms, No Fever, No Chills Eyes: No Symptoms Ears, Nose, & Throat: No Symptoms Respiratory: No Symptoms, No Cough, No Dyspnea Cardiac: No Symptoms, No Chest Pain, No Edema, No Syncope Abdominal/Gastrointestinal: No Symptoms, No Abdominal Pain, No Nausea, No Vomiting, No Diarrhea Genitourinary Symptoms: No Symptoms, No Dysuria Musculoskeletal: No Symptoms, No Back Pain, No Neck Pain Skin: No Symptoms, No Rash Neurological: No Symptoms, No Dizziness, No Focal Weakness, No Sensory Changes Psychological: No Symptoms Endocrine: No Symptoms Hematologic/Lymphatic: No Symptoms Immunological/Allergic: No Symptoms All Other Systems: Reviewed and Negative - Past Medical History Pertinent Past Medical History: Yes Neurological History: No Pertinent History ENT History: No Pertinent History Cardiac History: No Pertinent History Respiratory History: Asthma, Pneumonia Endocrine Medical History: No Pertinent History Musculoskeletal History: No Pertinent History GI Medical History: No Pertinent History History: No Pertinent History Psycho-Social History: No Pertinent History Female Reproductive Disorders: No Pertinent History Other Medical History: [place] 2018 - Past Surgical History Past Surgical History: No Neuro Surgical History: No Pertinent History Cardiac: No Pertinent History Respiratory: No Pertinent History Gastrointestinal: No Pertinent History Genitourinary: No Pertinent History Musculoskeletal: No Pertinent History Female Surgical History: Section - Social History Smoking Status: Current every day smoker How long have you smoked: unknown Exposure to second hand smoke: No Drug Use: none Patient Lives Alone: No - Female History Hx Last Menstrual Period: now Hx Now: No - Nursing Vital Signs Nursing Vital Signs: Initial Vital Signs Temperature 98.2 F 12/11/21 17:27 Pulse Rate 80 12/11/21 17:27 Respiratory Rate 18 12/11/21 17:27 Blood Pressure 133/75 12/11/21 17:27 O2 Sat by Pulse Oximetry 99 12/11/21 17:27 Pain Scale Pain Intensity [Right Soft 10 Tissue] Pain Intensity 10 - Physical Exam General Appearance: no apparent distress, alert Eye Exam: PERRL/EOMI, eyes nml inspection Ears, Nose, Throat Exam: normal ENT inspection, TMs normal, pharynx normal, moist mucous membranes Neck Exam: normal inspection, non-tender, supple, full range of motion Respiratory Exam: normal breath sounds, lungs clear, airway intact, No respiratory distress Cardiovascular Exam: regular rate/rhythm, normal heart sounds, normal peripheral pulses Gastrointestinal/Abdomen Exam: soft, normal bowel sounds, No tenderness, No mass Back Exam: normal inspection, normal range of motion, No CVA tenderness, No vertebral tenderness Extremity Exam: normal inspection, normal range of motion, pelvis stable Neurologic Exam: alert, oriented x 3, cooperative, normal mood/affect, nml cerebellar function, nml station & gait, sensation nml, No motor deficits Skin Exam: normal color, warm, dry, other (Right breast at approximately 4:00 there is a draining sinus. The material draining appears to be pus. The area is tender. No involvement of the nipple.), No rash Lymphatic Exam: No adenopathy SpO2 Interpretation: normal SpO2: 99 O2 Delivery: Room Air - Course Nursing assessment & vital signs reviewed: Yes Ordered Tests: Active Orders 24 hr Category Date Time Status CULTURE,WOUND Stat Lab 12/11/21 Ordered Medication Summary Generic Name Dose Route Start Last Admin Trade Name Freq PRN Reason Stop Dose Admin Doxycycline Hyclate 100 mg/ 100 mls @ 100 mls/hr 12/11/21 22:00 Dextrose IV 01/10/22 21:59 Q12HT HARMEET Discontinued Medications Generic Name Dose Route Start Last Admin Trade Name Freq PRN Reason Stop Dose Admin Morphine Sulfate 4 mg 12/11/21 18:17 12/11/21 18:22 Morphine Sulfate 4 Mg/Ml Injection IV 12/11/21 18:18 4 mg STAT ONE Administration Morphine Sulfate Confirm 12/11/21 18:20 Morphine Sulfate 4 Mg/Ml Injection Administered 12/11/21 18:21 Dose 4 mg .ROUTE .ST-MED ONE - Progress Progress: improved Progress Note: Case discussed with Dr. Tobin Moses who will see patient in his office tomorrow. Patient received a dose of IV antibiotic in our ED. She also received pain medication. No indication for further work-up at this time. Will discharge home. Patient agrees to follow-up with Dr. Moses tomorrow in his office. She will call for an appointment time. Portions of this note were created with voice recognition technology. There may be grammatical, spelling, punctuation or sound alike errors 12/11/21 18:29 12/11/21 18:[address] Other (Case discussed with Dr. Tobin Moses) Will see patient in: office Counseled pt/family regarding: diagnosis, need for follow-up - Departure Departure Disposition: Home Clinical Impression: Breast abscess, Mastitis Condition: Stable Critical Care Time: No Referrals: DESHAUN INTERIANO MD [Primary Care Provider] - Follow up/PCP as directed BRITTON MOSES MD [ACTIVE STAFF] - Follow up/PCP as directed Additional Instructions: Please call Dr. Moses's office first thing in the morning for an appointment time. Dr. Moses will see you tomorrow for further evaluation of your breast infection/abscess Discharge/Care Plan MINH LAW was seen on 12/11/21 in the Emergency Room. The patient was counseled regarding Diagnosis,Lab results, Imaging studies, need for follow up and when to return to the Emergency Room. Prescriptions given: Discharge Note I have spoken with the patient and/or caregivers. I have explained the patient's condition, diagnosis and treatment plan based on the information available to me at this time. I have answered the patient's and/or caregiver's questions and addressed any concerns. The patient and/or caregivers have as good understanding of the patient's diagnosis, condition and treatment plan as can be expected at this point. The vital signs have been stable. The patient's condition is stable and appropriate for discharge from the emergency department. The patient will pursue further outpatient evaluation with the primary care physician or other designated or consulting physician as outlined in the discharge instructions. The patient and/or caregivers are agreeable to this plan of care and follow-up instructions have been explained in detail. The patient and/or caregivers have received these instruction. The patient/and or caregivers are aware that any significant change in condition or worsening of symptoms should prompt an immediate return to this or the closest emergency department or call 911.
[2021-12-11] MEDS ORDERED: VIBRAMYCIN 100 MG IV ONE (18:37)
[2021-12-11] MEDS ORDERED: D5w 100ML Mini Bag 100 ML 100 ML IV ONE (18:38)
[2021-12-11] MEDS ORDERED: XYLOCAINE 2% HCL 20 ML MDV ONE (18:50)
[2021-12-11] MEDS ORDERED: XYLOCAINE 2% HCL 20 ML MDV IJ ONE (18:52)
[2021-12-11 20:05] VITALS: BP 127/84; PULSE 74; O2SAT 98
[2021-12-11] MEDS ORDERED: VIBRAMYCIN 100 MG*** 100 MG in Dextrose 5%/Water IV Soln. 100ML PLUS BAG 100 ML IV SCH (22:00)
== END 2021-12-11 19:57 | disposition home or self-care (01) ==
LOC: ED 17:24
DX: N61.1 Abscess of the breast and nipple (principal); Z72.0 Tobacco use; Z28.310 Unvaccinated for COVID-19
CPT/HCPCS: 36000; 87070; 96374; 96376; 99284; J2270

== ENCOUNTER 2022-11-20 16:57 | Emergency (ER) | payer OTHER | END 2022-11-20 18:40 | disposition left against medical advice (07) | LOC: ED 16:57 | DX: Z53.21 Procedure and treatment not carried out due to patient leaving prior to being seen by health care provider (principal) ==

== ENCOUNTER 2022-11-21 17:18 | Emergency (ER) | payer OTHER ==
[2022-11-21 17:35] VITALS: O2SAT 100
--- NOTE | 2022-11-21 17:49 | ERPHSYRPT ---
- History of Present Illness Time Seen by Provider: 11/21/22 17:25 Source: patient Exam Limitations: no limitations Patient Subjective Stated Complaint: Right breast pain-possible mastitis Triage Nursing Assessment: Patient ambulated back to ED and transferred self to bed. Patient A+O X 3. Patient's skin pink, warm and dry. Patient complains of redness, swelling and warmth to right breast. Patient states she is not and her last baby was born a year ago. Patient complains of pain to right breast 6/10. Red raised area noted to right breast with small open area with yellow drainage. Area is warm and red. Physician History: Patient has right breast pain drainage redness. Initially patient comes in complaining of mastitis. However on further history it sounds like this is a recurrent issue. Patient has a lesion at the 3 o'clock position just lateral to her nipple. No fever chills, systemic signs of illness. Patient states it has previously been drained. She last had it drained 1 year ago here. She has not followed up with ETHNOLOGY PROFESSOR, general surgery, her PCP for this. Patient does have a family history of breast cancer Allergies/Adverse Reactions: amoxicillin [From Augmentin] Allergy (Verified 11/21/22 17:25) clavulanic acid [From Augmentin] Allergy (Verified 11/21/22 17:25) latex Adverse Reaction (Verified 11/21/22 17:25) Hx Tetanus, Diphtheria Vaccination/Date Given: No Hx Influenza Vaccination/Date Given: Yes Hx Pneumococcal Vaccination/Date Given: No Immunizations Up to Date: Yes Travel Risk - International Travel Have you traveled outside of the country in past 3 weeks: No - Coronavirus Screening Are you exhibiting any of the following symptoms?: No Close contact with a COVID-19 positive Pt in past 14-21 Days: No - Vaccine Status Have you recieved a Covid-19 vaccination: No - Review of Systems Constitutional: No Fever, No Chills Eyes: No Symptoms Ears, Nose, & Throat: No Symptoms Respiratory: No Cough, No Dyspnea Cardiac: No Chest Pain, No Edema, No Syncope Abdominal/Gastrointestinal: No Abdominal Pain, No Nausea, No Vomiting, No Diarrhea Genitourinary Symptoms: No Dysuria Musculoskeletal: No Back Pain, No Neck Pain Skin: Other (Breast lesion), No Rash Neurological: No Dizziness, No Focal Weakness, No Sensory Changes Psychological: No Symptoms Endocrine: No Symptoms All Other Systems: Reviewed and Negative - Past Medical History Pertinent Past Medical History: Yes Neurological History: No Pertinent History ENT History: No Pertinent History Cardiac History: No Pertinent History Respiratory History: Asthma, Pneumonia Endocrine Medical History: No Pertinent History Musculoskeletal History: No Pertinent History GI Medical History: No Pertinent History History: No Pertinent History Psycho-Social History: No Pertinent History Female Reproductive Disorders: No Pertinent History Other Medical History: [place] 2018 - Past Surgical History Past Surgical History: No Neuro Surgical History: No Pertinent History Cardiac: No Pertinent History Respiratory: No Pertinent History Gastrointestinal: No Pertinent History Genitourinary: No Pertinent History Musculoskeletal: No Pertinent History Female Surgical History: Section - Social History Smoking Status: Current every day smoker How long have you smoked: unknown Exposure to second hand smoke: No Drug Use: none Patient Lives Alone: No - Female History Hx Last Menstrual Period: currently Hx Now: No - Nursing Vital Signs Nursing Vital Signs: Initial Vital Signs Temperature 98.0 F 11/21/22 17:26 Pulse Rate 82 11/21/22 17:26 Respiratory Rate 18 11/21/22 17:26 Blood Pressure 119/77 11/21/22 17:26 O2 Sat by Pulse Oximetry 100 11/21/22 17:26 Pain Scale Pain Intensity 6 - Physical Exam General Appearance: no apparent distress, alert Eye Exam: PERRL/EOMI, eyes nml inspection Ears, Nose, Throat Exam: normal ENT inspection, TMs normal, pharynx normal, moist mucous membranes Neck Exam: normal inspection, non-tender, supple, full range of motion Respiratory Exam: normal breath sounds, lungs clear, No respiratory distress Cardiovascular Exam: regular rate/rhythm, normal heart sounds, normal peripheral pulses Gastrointestinal/Abdomen Exam: soft, normal bowel sounds, No tenderness, No mass Back Exam: normal inspection, normal range of motion, No CVA tenderness, No vertebral tenderness Extremity Exam: normal inspection, normal range of motion, pelvis stable Neurologic Exam: alert, oriented x 3, cooperative, No motor deficits Skin Exam: normal color, warm, dry, other (Breast lesion at the 3 o'clock position just lateral to the nipple. Chaperoned breast exam with the nurse jacque izaguirre. It is already draining. No central area of fluctuance. Some surrounding redness. It was outlined. No other firm masses in the breast. Minimal areola involvement.), No rash Lymphatic Exam: No adenopathy SpO2: 100 - Course Nursing assessment & vital signs reviewed: Yes - Progress Progress: improved Progress Note: 11/21/22 18:17 Right breast lesion is concerning for a cancer. This is given that it is recurrent, tender, draining. She is not actively breast-feeding. She has not breast-fed her child for over 1 year. Reviewing previous chart, Dr. Elmore did drain this last December. He arranged for outpatient follow-up to ensure that it healed well. Reviewing the chart, patient states that she did not go to the follow-up appointment. I did emphasize very strongly my concern for a new onset cancer in the setting of a recurrent breast lesion. We gave her follow-up to ETHNOLOGY PROFESSOR, hematology oncology, she should also call her PCP to help arrange care. In case there is a component of cellulitis/mastitis, I did treat this with Keflex. Patient states her understanding will follow-up as described Counseled pt/family regarding: diagnosis, need for follow-up, smoking cessation - Departure Departure Disposition: Home Clinical Impression: Breast lesion, Cellulitis Condition: Stable Critical Care Time: No Referrals: MERLY GAVIN MD [Primary Care Provider] - Follow up/PCP as directed Instructions: Cellulitis (Skin Infection), Adult ED Additional Instructions: I have high concern today that your chronic breast infections of the right breast may be a breast cancer. Given this it is absolutely imperative that you follow-up closely with ETHNOLOGY PROFESSOR or hematology/oncology for further testing. We will give you several to follow-up with below. You need to be seen in the next 1 to 2 weeks. You should also call your PCP first thing tomorrow morning for this chronic issue as well. It is important that they can help you get proper follow-up in case this is breast cancer as well. Dr. Alvarez Meyer [facility] [address] [facility] [place] [address] Chavez Dash MD [facility] [address] [place], [place] [id number] [facility] [employer] Consultant-communications manager [phone] Prescriptions: Cephalexin Mh 500 mg [Keflex 500 mg] 500 mg PO BID 10 Days #20 cap
[2022-11-21 17:51] VITALS: BP 129/77; PULSE 89
== END 2022-11-21 18:03 | disposition home or self-care (01) ==
LOC: ED 17:18
DX: N61.0 Mastitis without abscess (principal); Z28.310 Unvaccinated for COVID-19; Z72.0 Tobacco use
CPT/HCPCS: 99281